=== PATIENT | female | born 1945 | race Caucasian/White ===

== ENCOUNTER 2016-11-25 18:49 | Emergency (ER) | payer OTHER ==
[~2016-11-25] VITALS: Ht 166.4 cm; Wt 89.7 kg
[~2016-11-25 18:49] MED LIST: ACET-1256 PO; CALC600T57 PO; LSX40 PO; MULT-506 PO; POTA10TA32 PO; TRC48 PO; VTMD1000 PO; WARF-246 PO
[2016-11-25 18:52] VITALS: TEMP 36.6; Ht 166.4 cm; Wt 89.7 kg
--- NOTE | 2016-11-25 19:49 | EMERGENCY ROOM VISIT NOTE ---
History Report prepared by Chandni: Karmen Purcell Under the Supervision of: Dr. Kirk Stephenson M.D. First contact with patient: 19:11 Chief Complaint: LEG PAIN,LEG INJURY Stated Complaint: LUMP ON RIGHT LEG History of Present Illness The patient is a 70 year old female who presents to the Emergency Room with complaints of a worsening lower right leg pain starting 3 days [employer]AD [employer]ING [employer]. The patient rates the intensity as a 4-5/10. The patient states that she noticed a lump on her right leg luevano that appeared to develop 3 days ago. She states that since the lump appeared it has gotten larger in size. The patient denies any injury to the site. The patient denies any calf pain, chest pain, fever, sob, weakness , or tingling. The patient states that she currently takes Warfarin for a mechanical valve. 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 Patient denies any tingling, calf pain. Review of Systems See HPI for pertinent positives & negatives. A total of 10 systems reviewed and were otherwise negative. Past Medical & Surgical Medical Problems: (1) HTN (hypertension) (2) Pacemaker Surgical Problems: (1) H/O: (2) History of appendectomy (3) Hx of cholecystectomy Old medical records were reviewed. Nurse's notes were reviewed and I agree with. Family History Cancer Diabetes mellitus Heart disease Hypertension Seizures Social History Smoking Status: Never Smoker Marital Status: Housing Status: lives with family Occupation Status: retired Current/Historical Medications Scheduled Calcium W/ Vitamin D (Calcium/Vitamin D), 1 TAB PO BID Cholecalciferol (Vitamin D3), 1,000 INTER.UNIT PO DAILY Fenofibrate (Fenofibrate), 48 MG PO DAILY Furosemide (Furosemide), 20 MG PO DAILY Multivitamin (Multivitamin), 1 TAB PO DAILY Potassium Chloride Microencaps (Potassium Chloride Er), 20 MEQ PO DAILY Warfarin Sodium (Warfarin Sodium), 5 MG PO [id number] Warfarin Sodium (Warfarin Sodium), 10 MG PO WEDNESDAY Scheduled PRN Acetaminophen (Tylenol), 1,000 MG PO TID PRN for Pain Allergies Coded Allergies: Simvastatin (Verified Allergy, Mild, SEVERE MUSCLE PAIN, 11/25/16) ALL STATIN DRUGS Physical Exam Vital Signs Date Time Temp Pulse Resp B/P Pulse Ox O2 Delivery O2 Flow Rate FiO2 11/25/16 21:48 62 18 129/80 99 Room Air 11/25/16 20:49 63 18 133/58 97 Room Air 11/25/16 18:52 36.6 79 18 151/66 99 Room Air Physical Exam General: Well developed well nourished in no acute distress, breathing comfortably on room air. Normal speech HEENT: Normal cephalic atraumatic. Pupils are equal round and reactive to light. Extraocular movements are intact. Oropharynx is pink with moist mucous membranes. No swelling of the mouth lips or tongue. Neck: Supple with a midline trachea. No meningeal signs or stiffness, no JVD or bruits. No Stridor. Chest: Clear to auscultation bilaterally. No wheezes or rhonchi. No increased work of breathing. Heart: regular rate and rhythm. Abdomen: Soft nontender, nondistended without rebound guarding or rigidity. Extremities: No cyanosis clubbing or edema. No calf tenderness or assymetry. Right lower extremity, hard indurated area right medial calf, no redness 2+ pulses Spine/Back. Non tender to palpation. No CVA tenderness Skin: Good turgor without rashes. Neurologic exam: Cranial nerves two through 12 are intact. Motor and sensation are intact and symmetrical throughout. Medical Decision & Procedures ER Provider Diagnostic Interpretation: X-ray results as stated below per interpretation by me and the radiologist: RIGHT TIBIA/FIBULA 2 VIEWS ROUTINE CLINICAL HISTORY: eval for mass Right mass COMPARISON: None. DISCUSSION: The bones and joint spaces appear intact. There is no evidence of fracture, dislocation or bony disease. There is no evidence for soft tissue swelling. IMPRESSION: Negative study. Electronically signed by: Luis Felipe Lazar M.D. 11/25/2016 8:16 PM Dictated Date/Time: 11/25/2016 8:15 PM US results as stated below per my review and radiologist interpretation: Venous Doppler right leg RIGHT VENOUS DOPP LOWER EXT UNILAT CLINICAL HISTORY: eval for DVT Right pain. Edema. TECHNIQUE: Venous Doppler COMPARISON STUDY: 04/02/2016 FINDINGS: Normal venous Doppler. No evidence of deep venous thrombosis. Heterogeneous nodule within the subcutaneous tissues in medial calf. This measures approximately 4.5 x 2.0 cm. Potentially relates to a hematoma as it was not identified on the prior study. IMPRESSION: 1. Study is negative for deep venous thrombosis. 2. Nodule within the subcutaneous tissues medial calf. This statistically is most consistent with that of a hematoma as it was not seen on the prior study. 3. This persists, biopsy would be indicated. Electronically signed by: Luis Felipe Lazar M.D. 11/25/2016 8:33 PM Dictated Date/Time: 11/25/2016 8:32 PM Laboratory Results 11/25/16 19:55 Red Blood Count 4.25, Mean Corpuscular Volume 82.6, Mean Corpuscular Hemoglobin 27.8, Mean Corpuscular Hemoglobin Concent 33.6, Mean Platelet Volume 10.0, Neutrophils (%) (Auto) 50.7, Lymphocytes (%) (Auto) 34.9, Monocytes (%) (Auto) 8.8, Eosinophils (%) (Auto) 4.1, Basophils (%) (Auto) 1.2, Neutrophils # (Auto) 1.73, Lymphocytes # (Auto) 1.19, Monocytes # (Auto) 0.30, Eosinophils # (Auto) 0.14, Basophils # (Auto) 0.04 11/25/16 19:55 Test 11/25/16 19:55 White Blood Count 3.41 K/uL (4.8-10.8) Red Blood Count 4.25 M/uL (4.2-5.4) Hemoglobin 11.8 g/dL (12.0-16.0) Hematocrit 35.1 % (37-47) Mean Corpuscular Volume 82.6 fL (80-100) Mean Corpuscular Hemoglobin 27.8 pg (25-34) Mean Corpuscular Hemoglobin Concent 33.6 g/dl (32-36) Platelet Count 208 K/uL (130-400) Mean Platelet Volume 10.0 fL (7.4-10.4) Neutrophils (%) (Auto) 50.7 % Lymphocytes (%) (Auto) 34.9 % Monocytes (%) (Auto) 8.8 % Eosinophils (%) (Auto) 4.1 % Basophils (%) (Auto) 1.2 % Neutrophils # (Auto) 1.73 K/uL (1.4-6.5) Lymphocytes # (Auto) 1.19 K/uL (1.2-3.4) Monocytes # (Auto) 0.30 K/uL (0.11-0.59) Eosinophils # (Auto) 0.14 K/uL (0-0.5) Basophils # (Auto) 0.04 K/uL (0-0.2) RDW Standard Deviation 43.2 fL (36.4-46.3) RDW Coefficient of Variation 14.2 % (11.5-14.5) Immature Granulocyte % (Auto) 0.3 % Immature Granulocyte # (Auto) 0.01 K/uL (0.00-0.02) Prothrombin Time 56.2 SECONDS (9.0-12.0) Prothromb Time International Ratio 4.9 (0.9-1.1) Activated Partial Thromboplast Time 44.1 SECONDS (21.0-31.0) Partial Thromboplastin Ratio 1.7 Anion Gap 6.0 mmol/L (3-11) Est Creatinine Clear Calc Drug Dose 84.7 ml/min Estimated GFR () 101.4 Estimated GFR (Non- 87.5 BUN/Creatinine Ratio 28.8 (10-20) Calcium Level 8.9 mg/dl (8.5-10.1) Laboratory studies as stated above per my review. ED Course 0:At this time the patient was evaluated by the medical student. The student s findings were discussed with me. We discussed a possible treatment plan and differential diagnoses for the patient. 2014: Past medical records reviewed. The patient was evaluated in room B11B, and a complete history and physical examination were performed. 2107: I reevaluated the patient and she was resting comfortably. 2144: Upon reevaluation, the patient is hemodynamically stable. I discussed the results and treatment plan with her. She verbalized agreement of the treatment plan. The patient was discharged home. Medical Decision Differentials include, but are not limited to; DVT, fracture, malignancy, hematoma and electrolyte or metabolic abnormality. This patient comes in as described above. She has a painful lump on the right medial calf. It is not red or warm or swollen. She has no evidence suggest infection. The knee and ankle are unremarkable. She is neurologically and neurovascularly intact. She has no evidence of compartment syndrome. She has normal distal pulses and good capillary refill. X-ray and ultrasound as well as blood work was obtained. There is no evidence to suggest any bony abnormality or fracture. Ultrasound shows what appears to be a hematoma. Her INR was 4.9 and she says she is supposed to be between 3 and 4. She is slightly supratherapeutic. I will have her hold her dose of Coumadin in the morning and follow-up with her doctor tomorrow. She may need to hold it further but I told her not to hold more than one dose without checking with her doctor. She has no white count or fever to suggest infection. She's had no electrolyte or metabolic abnormalities. I think she basically has a hematoma and is on Coumadin. She is to return if: increasing pain or swelling redness or warmth numbness or weakness, any pain or problems in her foot, any new problems or concerns. Have close follow-up with her doctor tomorrow for recheck and recheck of her INR Coumadin was in 1-2 days. Family was happy with plan and was discharged to home. Impression Primary Impression: Hematoma Additional Impression: Supratherapeutic INR Scribe Attestation The scribe's documentation has been prepared under my direction and personally reviewed by me in its entirety. I confirm that the note above accurately reflects all work, treatment, procedures, and medical decision making performed by me. Departure Information Dispostion Home / Self-Care Referrals Wallace Mejia D.O. (PCP) Forms HOME CARE DOCUMENTATION FORM, IMPORTANT VISIT INFORMATION Patient Instructions My [facility] Additional Instructions Rest. Ice intermittently Hold Coumadin tomorrow morning only. Call your doctor tomorrow for further instructions. You will need close follow-up either tomorrow on Wednesday and may need to hold it further but do not do this unless you talk to your doctor. Return if: Increasing pain or swelling, numbness or weakness, fever or chills, redness or warmth, any new problems or concerns. Problem Qualifiers
[2016-11-25 20:06] LABS: BASO % 1.2 %; BASO ABS # 0.04 K/uL (0-0.2); COMPLETE YES; EOS % 4.1 %; HEMATOCRIT 35.1 % (37-47); IG% 0.3 %; LYMPH % 34.9 %; LYMPH ABS # 1.19 K/uL (1.2-3.4); MEAN CELL VOLUME 82.6 fL (80-100); MEAN CORPUSCULAR HEMOGLOBIN 27.8 pg (25-34); MEAN CORPUSCULAR HGB CONC 33.6 g/dl (32-36); MONO % 8.8 %; NEUT % 50.7 %; PLATELET COUNT 208 K/uL (130-400); RED BLOOD COUNT 4.25 M/uL (4.2-5.4); WHITE BLOOD COUNT 3.41 K/uL (4.8-10.8)
[2016-11-25] MEDS ORDERED: CALC600T24 PO (20:18)
--- NOTE | 2016-11-25 20:18 | DIAGNOSTIC IMAGING REPORT ---
RIGHT TIBIA/FIBULA 2 VIEWS ROUTINE CLINICAL HISTORY: eval for mass Right mass COMPARISON: None. DISCUSSION: The bones and joint spaces appear intact. There is no evidence of fracture, dislocation or bony disease. There is no evidence for soft tissue swelling. IMPRESSION: Negative study. Electronically signed by: Luis Felipe Lazar M.D. 11/25/2016 8:16 PM Dictated Date/Time: 11/25/2016 8:15 PM
[2016-11-25 20:24] LABS: PARTIAL THROMBOPLASTIN RATIO 1.7; PROTHROMBIN TIME (PATIENT) 56.2 SECONDS (9.0-12.0)
[2016-11-25 20:30] LABS: BUN/CREATININE RATIO 28.8 (10-20); CALCIUM 8.9 mg/dl (8.5-10.1); CREATININE 0.71 mg/dl (0.60-1.20)
--- NOTE | 2016-11-25 20:36 | DIAGNOSTIC IMAGING REPORT ---
Venous Doppler right leg RIGHT VENOUS DOPP LOWER EXT UNILAT CLINICAL HISTORY: eval for DVT Right pain. Edema. TECHNIQUE: Venous Doppler COMPARISON STUDY: 04/02/2016 FINDINGS: Normal venous Doppler. No evidence of deep venous thrombosis. Heterogeneous nodule within the subcutaneous tissues in medial calf. This measures approximately 4.5 x 2.0 cm. Potentially relates to a hematoma as it was not identified on the prior study. IMPRESSION: 1. Study is negative for deep venous thrombosis. 2. Nodule within the subcutaneous tissues medial calf. This statistically is most consistent with that of a hematoma as it was not seen on the prior study. 3. This persists, biopsy would be indicated. Electronically signed by: Luis Felipe Lazar M.D. 11/25/2016 8:33 PM Dictated Date/Time: 11/25/2016 8:32 PM
[2016-11-25 20:37] LABS: INR 4.9 (0.9-1.1)
[2016-11-25 21:48] VITALS: BP 129/80; PULSE 62; O2SAT 99
== END 2016-11-25 21:49 | disposition home or self-care (01) ==
LOC: C.EDB 18:50
DX: S80.11XA Contusion of right lower leg, initial encounter (principal); X58.XXXA Exposure to other specified factors, initial encounter; R79.1 Abnormal coagulation profile; I10 Essential (primary) hypertension; Z95.0 Presence of cardiac pacemaker; Z80.9 Family history of malignant neoplasm, unspecified; Z83.3 Family history of diabetes mellitus; Z82.49 Family history of ischemic heart disease and other diseases of the circulatory system; Z79.01 Long term (current) use of anticoagulants; Z79.899 Other long term (current) drug therapy

== ENCOUNTER 2021-05-12 20:52 | Inpatient (IN) ==
[2021-05-12 21:26] LABS: Basophils # (auto) 0.03 K/uL (0-0.2); Basophils % (auto) 0.7 %; Eosinophils % (auto) 4.9 %; Hematocrit (blood only) 38.2 % (37-47); Hemoglobin 12.2 g/dL (12.0-16.0); Immature Granulocytes # (auto) 0.01 K/uL (0.00-0.02); Immature Granulocytes % (auto) 0.2 %; Lymphocytes # (auto) 1.52 K/uL (1.2-3.4); Lymphocytes % (auto) 36.9 %; Mean Corpuscular Hemoglobin 27.5 pg (25-34); Mean Corpuscular Hgb Conc 31.9 g/dL (32-36); Mean Corpuscular Volume 86.2 fL (80-100); Monocytes # (auto) 0.45 K/uL (0.11-0.59); Monocytes % (auto) 10.9 %; Neutrophils # (auto) 1.91 K/uL (1.4-6.5); Neutrophils % (auto) 46.4 %; Platelet Count 197 K/uL (130-400); Red Blood Count 4.43 M/uL (4.2-5.4); White Blood Count 4.12 K/uL (4.8-10.8)
[2021-05-12 21:38] LABS: INR 3.2 (0.9-1.1); Partial Thromboplastin Ratio 1.5; Partial Thromboplastin Time 40.2 Seconds (21.0-31.0); Prothrombin Time 29.7 Seconds (9.0-12.0)
[2021-05-12 21:43] LABS: Albumin Level 3.5 gm/dl (3.4-5.0); BUN Creatinine Ratio 20.3 (10-20); Calcium 9.1 mg/dl (8.5-10.1); Creatinine Clr Calc Pharmacy 55.3 ml/min; Est GFR (African American) 61.7 ml/min; Est GFR (Non-African American) 53.3 ml/min; Potassium 3.7 mmol/L (3.5-5.1)
[2021-05-12 22:10] LABS: Albumin Globulin Ratio 0.9 (0.9-2); Bilirubin,Total 0.4 mg/dl (0.2-1); Total Protein 7.5 gm/dl (6.4-8.2); Troponin I 0.242 ng/ml (0-0.045)
--- NOTE | 2021-05-12 23:18 | Emergency Department Note ---
Impression & Plan Non-ST elevation ND (NSTEMI), Chest pain ED Provider Note Provider: Néstor Rubalcava MD DATE OF SERVICE: 05/12/2021 CHIEF COMPLAINT: Chest pressure HISTORY OF PRESENT ILLNESS: Patient is a 75-year-old female history of gastric bypass mask, mechanical valve on Coumadin, cholecystectomy, appendectomy, and aortic aneurysm presenting here today with her son with the onset around 830 am this morning of some pain and pressure in her left chest. She denies any falls or trauma. Patient states he was out walking her dog when this began. Rested and symptoms persisted throughout the day. Called her family and was eventually persuaded to come here for evaluation. States feels just a little bit short of breath. States has been taking her medicines but recently moving back to the area and has not established with that doctor here yet. Patient would last several days has been moving boxes and her son thinks she may have overdone it with this. She also reports that she complained of a little bit of dizziness earlier. Patient denies this now and states maybe 3 out of 10 left-sided chest pressure. Denies significant radiation of the pain. Pain does not really change with movement of her arms. Pain may be a little bit better than when it started earlier today. Denies abdominal symptoms. REVIEW OF SYSTEMS: A total of 10 review of systems was obtained and negative except as stated above in the HPI. PAST MEDICAL HISTORY: As noted above MEDICATIONS: Reviewed home includes Coumadin and ASA SOCIAL HISTORY: Moving into the area to live at the [facility] apartments PHYSICAL EXAM: GENERAL: alert and oriented in no acute distress on stretcher Head: normocephalic and atraumatic EYES: No injection, discharge or icterus. NECK: Trachea midline. ENT: Mucous membranes pink and moist. LUNGS: Airway patent. No retractions. Breath sounds clear HEART: Regular rate and rhythm. With minimal left chest wall tenderness over the area of prior pacemaker site without significant erythema or crepitus. ABDOMEN: Soft and non-tender, without guarding or rebound. SKIN: Acyanotic, warm, dry, without rashes EXTREMITIES: Without tenderness with mild bilateral pedal edema. NEUROLOGICAL: No focal deficits. No aphasia. No facial droop or slurred speech. EK bpm AV paced rhythm without PVC. Widened QRS complex. QTc 497. No acute ST segment elevation noted accounting for the paced rhythm. Compared to previous from October 082018 similar morphologies. CONTINUOUS CARDIAC MONITORING: was ordered and showed a heart rate of 60s to 70s bpm in paced rhythm 1 view chest x-ray per my interpretation: No evidence of pneumothorax or pleural effusion. Pacemaker in place. Patient's laboratory studies and imaging reviewed. Differential includes Cardiac ischemia, aortic dissection, pulmonary embolism, pneumothorax, pneumonia, pericarditis, myocarditis, esophageal rupture, GERD, cholecystitis, pancreatitis, musculoskeletal, as well as other pathologies. IMPRESSION/MEDICAL DECISION MAKING: Patient walking with the onset of some chest pressure left chest. Minimal shortness of breath or dizziness. No trauma or syncope. Patient therapeutic on Coumadin lower suspicion for PE. No focal neurological deficits concerning for stroke at this time. Doubt acute intracranial bleed given her lack of neuro symptoms or headache. Blood work with out significant anemia and borderline leukopenia. No evidence of significant renal dysfunction. Troponin is noted to be elevated 0.242 without STEMI findings on EKG. With her complaint of chest discomfort concerning for NSTEMI. Patient did take aspirin today and she is already anticoagulated. Minimal discomfort at this time. Discussed with her the need for further observation here and cardiac consultation in the morning for further testing as well as trending of her blood work. She was in agreement. Will discuss with the hospitalist for further care here at the hospital. DIAGNOSIS: NSTEMI, Chest pain DISPOSITION: Hospitalist will evaluate Patient was agreeable with this plan. Past Med/Surg History Medical History (Updated 05/12/21 @ 23:30 by Néstor Rubalcava M.D.) Aortic aneurysm Compression fracture HTN (hypertension) Pacemaker Surgical History (Updated 11/22/18 @ 09:41 by Nuha Pineda RN) H/O gastric bypass H/O hernia repair H/O: History of appendectomy Hx of cholecystectomy Mechanical heart valve present Family History (Updated 10/21/18 @ 10:59 by Ella Olmos) Other Family history non-contributory Social History (Updated 10/19/18 @ 13:20 by Krupa Marks) Smoking Status: Never smoker Preferred Language: Ghanaian Communication Ability: Effective Visual Impairment: No Limitations Hearing Ability: Normal marital status: current occupational status: retired Feels Safe at Home: Yes Allergies Allergies Allergy/AdvReac Type Severity Reaction Status Date / Time ALL STATIN DRUGS AdvReac BILATERAL Uncoded 05/12/21 23:04 LEG WEAKNESS Home Meds Home Medications Medication Instructions Recorded Confirmed fenofibrate nanocrystallized 48 mg 48 mg PO QPM 10/08/18 05/12/21 tablet furosemide 20 mg tablet 20 mg PO DAILY 10/08/18 05/12/21 multivitamin (Multiple Vitamins) 1 tab PO DAILY 10/08/18 05/12/21 acetaminophen 500 mg tablet 1,000 mg PO Q6H PRN 05/12/21 05/12/21 gabapentin 300 mg capsule 300 mg PO TID 05/12/21 05/12/21 metoprolol tartrate 25 mg tablet 25 mg PO BID 05/12/21 05/12/21 potassium chloride 20 mEq 20 meq PO DAILY 05/12/21 05/12/21 tablet,extended release warfarin 1 mg tablet 4 mg PO DAILY 05/12/21 05/12/21 Results & Data (ED) Vital Signs Vital Signs - 24 hr 05/12/21 20:56 05/12/21 22:38 05/12/21 23:04 Temperature 36.4 C L Temperature Source Temporal Artery Scan Pulse Rate 90 Pulse Rate [Apical] 65 Respiratory Rate 20 16 Respiratory Effort / Characteristics Non-Labored Spontaneous Respiratory Depth Normal Blood Pressure 149/89 H Blood Pressure [Right Arm] 160/79 H Blood Pressure Mean 109 Blood Pressure Mean [Right Arm] 106 Pulse Oximetry 99 97 99 Oxygen Delivery Method Room Air Room Air Room Air Sepsis New/Unexplained Change in Mental Status N/A Sepsis Action Taken by Nursing No Action Required Laboratory Data Result diagrams: 05/12/21 21:00 05/12/21 21:00 Lab Results 05/12/21 05/12/21 05/12/21 Range/Units 21:00 21:00 21:00 WBC 4.12 L (4.8-10.8) K/uL RBC 4.43 (4.2-5.4) M/uL Hgb 12.2 (12.0-16.0) g/dL Hct 38.2 (37-47) % MCV 86.2 (80-100) fL MCH 27.5 (25-34) pg MCHC 31.9 L (32-36) g/dL RDW Std Deviation 44.0 (36.4-46.3) fL RDW Coeff of Derek 14.0 (11.5-14.5) % Plt Count 197 (130-400) K/uL MPV 10.0 (7.4-10.4) fL Immature Gran % (Auto) 0.2 % Neut % (Auto) 46.4 % Lymph % (Auto) 36.9 % [place] % (Auto) 10.9 % Eos % (Auto) 4.9 % Baso % (Auto) 0.7 % Neut # (Auto) 1.91 (1.4-6.5) K/uL Lymph # (Auto) 1.52 (1.2-3.4) K/uL [place] # (Auto) 0.45 (0.11-0.59) K/uL Eos # (Auto) 0.20 (0-0.5) K/uL Baso # (Auto) 0.03 (0-0.2) K/uL Immature Gran # (Auto) 0.01 (0.00-0.02) K/uL PT 29.7 H (9.0-12.0) Seconds INR 3.2 H (0.9-1.1) APTT 40.2 H (21.0-31.0) Seconds PTT Ratio 1.5 Sodium 140 (136-145) mmol/L Potassium 3.7 (3.5-5.1) mmol/L Chloride 108 H (98-107) mmol/L Carbon Dioxide 25 (21-32) mmol/L Anion Gap 7.0 (3-11) BUN 21 H (7-18) mg/dl Creatinine 1.04 (0.6-1.2) mg/dl Est Cr Clr Drug Dosing 55.3 ml/min Est GFR ( Amer) 61.7 ml/min Est GFR (Non-Af Amer) 53.3 ml/min BUN/Creatinine Ratio 20.3 H (10-20) Glucose 90 (70-99) mg/dl Calcium 9.1 (8.5-10.1) mg/dl Total Bilirubin 0.4 (0.2-1) mg/dl AST 42 H (15-37) U/L ALT 31 (12-78) U/L Alkaline Phosphatase 53 (45-117) U/L Troponin I 0.242 H* (0-0.045) ng/ml Total Protein 7.5 (6.4-8.2) gm/dl Albumin 3.5 (3.4-5.0) gm/dl Globulin 4.0 (2.5-4.0) gm/dl Albumin/Globulin Ratio 0.9 (0.9-2) COVID-19 Eval Order 05/12/21 Range/Units 22:50 WBC (4.8-10.8) K/uL RBC (4.2-5.4) M/uL Hgb (12.0-16.0) g/dL Hct (37-47) % MCV (80-100) fL MCH (25-34) pg MCHC (32-36) g/dL RDW Std Deviation (36.4-46.3) fL RDW Coeff of Derek (11.5-14.5) % Plt Count (130-400) K/uL MPV (7.4-10.4) fL Immature Gran % (Auto) % Neut % (Auto) % Lymph % (Auto) % [place] % (Auto) % Eos % (Auto) % Baso % (Auto) % Neut # (Auto) (1.4-6.5) K/uL Lymph # (Auto) (1.2-3.4) K/uL [place] # (Auto) (0.11-0.59) K/uL Eos # (Auto) (0-0.5) K/uL Baso # (Auto) (0-0.2) K/uL Immature Gran # (Auto) (0.00-0.02) K/uL PT (9.0-12.0) Seconds INR (0.9-1.1) APTT (21.0-31.0) Seconds PTT Ratio Sodium (136-145) mmol/L Potassium (3.5-5.1) mmol/L Chloride (98-107) mmol/L Carbon Dioxide (21-32) mmol/L Anion Gap (3-11) BUN (7-18) mg/dl Creatinine (0.6-1.2) mg/dl Est Cr Clr Drug Dosing ml/min Est GFR ( Amer) ml/min Est GFR (Non-Af Amer) ml/min BUN/Creatinine Ratio (10-20) Glucose (70-99) mg/dl Calcium (8.5-10.1) mg/dl Total Bilirubin (0.2-1) mg/dl AST (15-37) U/L ALT (12-78) U/L Alkaline Phosphatase (45-117) U/L Troponin I (0-0.045) ng/ml Total Protein (6.4-8.2) gm/dl Albumin (3.4-5.0) gm/dl Globulin (2.5-4.0) gm/dl Albumin/Globulin Ratio (0.9-2) COVID-19 Eval Order Covid19 at [facility] Discharge Plan Visit Data Chief Complaint: Cardiac Assessment Stated Complaint: PRESSURE WHERE PACEMAKER IS ED Provider: Néstor Rubalcava Discharge Problem: Non-ST elevation ND (NSTEMI), Chest pain Patient Disposition: Being Evaluated by Hospitalist Forms Stand Alone Forms: [facility] Prescriptions Prescriptions: No Action fenofibrate nanocrystallized 48 mg Tablet 48 mg PO QPM RF: 0 multivitamin [Multiple Vitamins] Tablet 1 tab PO DAILY RF: 0 furosemide 20 mg Tablet 20 mg PO DAILY RF: 0 acetaminophen [Tylenol Ex Str Rapid Release] 500 mg Tablet 1,000 mg PO Q6H PRN (Reason: Pain) RF: 0 warfarin 1 mg tablet 4 mg PO DAILY RF: 0 metoprolol tartrate 25 mg tablet 25 mg PO BID RF: 0 potassium chloride 20 mEq tablet extended release 20 meq PO DAILY RF: 0 gabapentin 300 mg capsule 300 mg PO TID RF: 0 Referrals Referrals: Wallace Mejia DO [Primary Care Provider] -
[2021-05-13 00:46] LABS: Troponin I 0.295 ng/ml (0-0.045)
--- NOTE | 2021-05-13 01:00 | History & Physical Report ---
Date of Service May 13, 2021 Assessment & Plan (1) Atypical chest pain: Plan: Likely musculoskeletal given reproducibility and recent exertion preparing for relocation Rule out ACS, hx CAD status post CABG Troponin elevation possibly from elevated BP SSS status post PPM on Coumadin, paced rhythm, INR therapeutic hx aortic stenosis status post bioprosthetic AVR hyperlipidemia/statin intolerance history gastric bypass OBS PCU Analgesia Follow troponin Continue home BP meds, initiate lisinopril if still uncontrolled TTE, Cardiology consult Re: Chest pain, troponin elevation N.p.o., hold Coumadin until patient seen by Cardiology in a.m. DVT prophylaxis. Coumadin INR goal between 2 and 3 if no procedure from cardiac standpoint Full code Patient son requesting updates from providers. Mr. Hanna Facer, contact #[phone]. Text document was generated using [employer] voice recognition software. It may contain grammatical or spelling errors. Kindly contact undersigned for clarification of any documentation item in question. History of Present Illness Chief Complaint: Chest pain Primary Care Provider: None Patient would like to be set up with former PCP (Dr. Wallace Mejia) upon discharge. History obtained from patient and records. Medical history significant for CAD status post CABG, SSS status post PPM on Coumadin, aortic stenosis status post bioprosthetic AVR, history of cardiac arrest as per records, hypertension, hyperlipidemia, statin intolerance, history gastric bypass. Patient underwent redo [place]oprosthetic [place] [facility] [place] after she was found to have mechanical AVR stenosis and mid LAD stenosis on cardiac cath at [facility]. Subsequent rehab stay followed by discharge to a home close to [place], [place] where patient resided with her daughter. Patient in the process of relocating back to [facility] this month. She was moving boxes over the weekend. This morning patient noted left-sided chest pressure with some shortness of breath while walking her dog. No cough. Chest pain somewhat different from episodes in the past. Some dizziness as well. Chest pain somewhat hurt more when moving her left arm. Patient currently comfortable at the ER. Medical History as above Surgical History : Breast lesion excision, gastric bypass, PPM, appendectomy, cholecystectomy, CABG, AVR Family History : Parkinson's disease, heart disease Personal/Social history : Non-smoker, no EtOH intake, retired high school assistant principal Allergies Allergy/AdvReac Type Severity Reaction Status Date / Time ALL STATIN DRUGS AdvReac BILATERAL Uncoded 05/12/21 23:04 LEG WEAKNESS Home Medications Medication Instructions Recorded Confirmed Type fenofibrate nanocrystallized 48 mg 48 mg PO QPM 10/08/18 05/12/21 History tablet furosemide 20 mg tablet 20 mg PO DAILY 10/08/18 05/12/21 History multivitamin (Multiple Vitamins) 1 tab PO DAILY 10/08/18 05/12/21 History acetaminophen 500 mg tablet 1,000 mg PO Q6H PRN 05/12/21 05/12/21 History gabapentin 300 mg capsule 300 mg PO TID 05/12/21 05/12/21 History metoprolol tartrate 25 mg tablet 25 mg PO BID 05/12/21 05/12/21 History potassium chloride 20 mEq 20 meq PO DAILY 05/12/21 05/12/21 History tablet,extended release warfarin 1 mg tablet 4 mg PO DAILY 05/12/21 05/12/21 History Past Med/Surg History Medical History Aortic aneurysm Compression fracture HTN (hypertension) Pacemaker Surgical History H/O gastric bypass H/O hernia repair H/O: History of appendectomy Hx of cholecystectomy Mechanical heart valve present Family History Other Family history non-contributory Social History Smoking Status: Never smoker Second Hand Exposure: Yes (at apartment complex); Do You Dip or Chew Tobacco: No; Tobacco Cessation Education Requested by Patient: No Hx Alcohol Use: No Hx Substance Use: No Preferred Language: Greek Communication Ability: Effective Visual Impairment: No Limitations Hearing Ability: Normal Chain Dyer Required: No Beliefs That Will Affect Care: None marital status: Current Living Situation: Alone current occupational status: retired Other Information That Helps Us Care for You: No Feels Safe at Home: Yes Safety Concerns: Feels Safe At This Time Assistive Devices: Glasses Review of Systems Review of Systems: As per HPI, all 10 systems reviewed, all other ROS negative Physical Exam Physical Exam: GENERAL: Comfortable, no respiratory distress, obese, pleasant SKIN: Normal color, warm, HEENT: [place] palpebral conjunctivae, no ptosis, moist buccal mucosa NECK : Supple, short neck no tenderness CHEST : CTA, left side chest wall tenderness HEART : RRR, systolic murmur ABDOMEN: Some distention, nontender EXTREMITIES : Minimal LE swelling, no LE tenderness, no other conspicuous deformities noted NEUROLOGIC : Coherent, no facial asymmetry, no other gross focality Results & Data Results & Data ([facility]) Vital Signs (Past 12 Hours) Vital Signs Temp Pulse Pulse Resp BP BP Pulse Ox 05/13/21 00:30 60 13 148/63 H 96 05/13/21 00:00 60 14 157/61 H 97 05/12/21 23:30 60 15 136/62 97 05/12/21 23:06 61 23 159/76 H 98 05/12/21 23:04 99 05/12/21 22:39 62 12 160/79 H 96 05/12/21 22:38 65 16 160/79 H 97 05/12/21 21:00 97 05/12/21 20:56 36.4 C L 90 20 149/89 H 99 Laboratory Results Laboratory Results WBC 4.12 K/uL (4.8-10.8) L 05/12/21 21:00 RBC 4.43 M/uL (4.2-5.4) 05/12/21 21:00 Hgb 12.2 g/dL (12.0-16.0) 05/12/21 21:00 Hct 38.2 % (37-47) 05/12/21 21:00 MCV 86.2 fL (80-100) 05/12/21 21:00 MCH 27.5 pg (25-34) 05/12/21 21:00 MCHC 31.9 g/dL (32-36) L 05/12/21 21:00 RDW Std Deviation 44.0 fL (36.4-46.3) 05/12/21 21:00 RDW Coeff of Derek 14.0 % (11.5-14.5) 05/12/21 21:00 Plt Count 197 K/uL (130-400) 05/12/21 21:00 MPV 10.0 fL (7.4-10.4) 05/12/21 21:00 Immature Gran % (Auto) 0.2 % 05/12/21 21:00 Neut % (Auto) 46.4 % 05/12/21 21:00 Lymph % (Auto) 36.9 % 05/12/21 21:00 [place] % (Auto) 10.9 % 05/12/21 21:00 Eos % (Auto) 4.9 % 05/12/21 21:00 Baso % (Auto) 0.7 % 05/12/21 21:00 Neut # (Auto) 1.91 K/uL (1.4-6.5) 05/12/21 21:00 Lymph # (Auto) 1.52 K/uL (1.2-3.4) 05/12/21 21:00 [place] # (Auto) 0.45 K/uL (0.11-0.59) 05/12/21 21:00 Eos # (Auto) 0.20 K/uL (0-0.5) 05/12/21 21:00 Baso # (Auto) 0.03 K/uL (0-0.2) 05/12/21 21:00 Immature Gran # (Auto) 0.01 K/uL (0.00-0.02) 05/12/21 21:00 PT 29.7 Seconds (9.0-12.0) H 05/12/21 21:00 INR 3.2 (0.9-1.1) H 05/12/21 21:00 APTT 40.2 Seconds (21.0-31.0) H 05/12/21 21:00 PTT Ratio 1.5 05/12/21 21:00 Sodium 140 mmol/L (136-145) 05/12/21 21:00 Potassium 3.7 mmol/L (3.5-5.1) 05/12/21 21:00 Chloride 108 mmol/L (98-107) H 05/12/21 21:00 Carbon Dioxide 25 mmol/L (21-32) 05/12/21 21:00 Anion Gap 7.0 (3-11) 05/12/21 21:00 BUN 21 mg/dl (7-18) H 05/12/21 21:00 Creatinine 1.04 mg/dl (0.6-1.2) 05/12/21 21:00 Est Cr Clr Drug Dosing 55.3 ml/min 05/12/21 21:00 Est GFR ( Amer) 61.7 ml/min 05/12/21 21:00 Est GFR (Non-Af Amer) 53.3 ml/min 05/12/21 21:00 BUN/Creatinine Ratio 20.3 (10-20) H 05/12/21 21:00 Glucose 90 mg/dl (70-99) 05/12/21 21:00 Calcium 9.1 mg/dl (8.5-10.1) 05/12/21 21:00 Total Bilirubin 0.4 mg/dl (0.2-1) 05/12/21 21:00 AST 42 U/L (15-37) H 05/12/21 21:00 ALT 31 U/L (12-78) 05/12/21 21:00 Alkaline Phosphatase 53 U/L (45-117) 05/12/21 21:00 Troponin I 0.295 ng/ml (0-0.045) H* 05/12/21 23:55 NT-Pro-B Natriuret Pep 475 pg/ml (0-900) 05/12/21 23:55 Total Protein 7.5 gm/dl (6.4-8.2) 05/12/21 21:00 Albumin 3.5 gm/dl (3.4-5.0) 05/12/21 21:00 Globulin 4.0 gm/dl (2.5-4.0) 05/12/21 21:00 Albumin/Globulin Ratio 0.9 (0.9-2) 05/12/21 21:00 COVID-19 Eval Order Covid19 at [facility] 05/12/21 22:50 SARS-CoV-2 (PCR) NEGATIVE (Negative) 05/12/21 22:50 Diagnostic Findings Chest x-ray as per my interpretation, pacemaker, no congestion EKG as per my interpretation : Rate 70, paced rhythm
[2021-05-13 03:50] LABS: Magnesium 2.2 mg/dl (1.8-2.4)
[2021-05-13] MEDS ORDERED: METOPROLOL TARTRATE 25 MG TAB PO STA (04:12)
[2021-05-13] MEDS ORDERED: POTASSIUM CHLORIDE 20 MEQ in LACTATED RINGER'S 1,000 ML IV SCH (04:30)
[2021-05-13] MEDS ORDERED: NITROGLYCERIN SL 0.4 MG/TAB TAB SL PRN (05:26)
[2021-05-13] MEDS ORDERED: traMADol HCL 50 MG TABLET PO PRN (05:26)
[2021-05-13] MEDS ORDERED: MoRPHine SULFATE 4 MG/ML 1 ML CARP\\VIAL IV PRN (05:26)
[2021-05-13] MEDS ORDERED: PROMETHAZINE HCL 12.5 MG in SODIUM CHLORIDE 0.9% 50 ML IV PRN (05:26)
[2021-05-13] MEDS ORDERED: LORazepam 0.25 MG/0.5 ML VIAL IV PRN (05:26)
[2021-05-13] MEDS ORDERED: PNEUMOCOCCAL POLYSACCHARIDES 25 MCG/0.5 ML VIAL/SYR IM ONE (05:44)
[2021-05-13] MEDS ORDERED: INFLUENZA VACCINE HIGH DOSE PF 65+ 0.7 ML SYR IM ONE (05:44)
[2021-05-13 07:14] LABS: Basophils # (auto) 0.03 K/uL (0-0.2); Eosinophils # (auto) 0.16 K/uL (0-0.5); Eosinophils % (auto) 5.2 %; Hemoglobin 12.1 g/dL (12.0-16.0); Immature Granulocytes # (auto) 0.01 K/uL (0.00-0.02); Immature Granulocytes % (auto) 0.3 %; Lymphocytes # (auto) 1.06 K/uL (1.2-3.4); Lymphocytes % (auto) 34.3 %; Mean Corpuscular Hemoglobin 27.4 pg (25-34); Mean Corpuscular Volume 88.4 fL (80-100); Mean Platelet Volume 10.6 fL (7.4-10.4); Monocytes # (auto) 0.25 K/uL (0.11-0.59); Monocytes % (auto) 8.1 %; Neutrophils # (auto) 1.58 K/uL (1.4-6.5); Neutrophils % (auto) 51.1 %; Platelet Count 202 K/uL (130-400); RDW Coefficient of Variation 13.9 % (11.5-14.5); RDW Standard Deviation 45.3 fL (36.4-46.3); Red Blood Count 4.41 M/uL (4.2-5.4); White Blood Count 3.09 K/uL (4.8-10.8)
[2021-05-13] MEDS: lisinopril 2.5 MG TAB PO SCH (07:15)
[2021-05-13 07:39] LABS: BUN Creatinine Ratio 20.2 (10-20); Calcium 8.8 mg/dl (8.5-10.1); Creatinine Clr Calc Pharmacy 71.6 ml/min; Est GFR (African American) 84.8 ml/min; Est GFR (Non-African American) 73.1 ml/min; Potassium 4.2 mmol/L (3.5-5.1)
--- NOTE | 2021-05-13 07:43 | XRay Report ---
XR chest 1V portable INDICATION: MN ^Chest Pain . TECHNIQUE: Single frontal radiograph of the chest was obtained. Comparison: Comparison is made to chest one view 10/07/2018 FINDINGS: Interval stability of median sternotomy wires and dual-lead pacemaker. The cardiomediastinal silhouet te is normal. The lungs are clear. No evidence of pleural effusion or pneumothorax. IMPRESSION: No acute chest disease. ACT 112: Negative or not required by law. Electronically signed by: Mert Love M.D. 05/13/2021 7:42 AM
[2021-05-13 07:47] LABS: Troponin I 0.247 ng/ml (0-0.045)
[2021-05-13 07:49] LABS: INR 3.2 (0.9-1.1); Prothrombin Time 29.2 Seconds (9.0-12.0)
[2021-05-13] MEDS ORDERED: METOPROLOL TARTRATE 25 MG TAB PO SCH (09:00)
[2021-05-13] MEDS: MULTIVITAMIN TAB PO SCH (09:01)
[2021-05-13] MEDS: GABAPENTIN 300 MG CAP PO SCH ×3 (09:02→20:10)
--- NOTE | 2021-05-13 09:43 | Cardiology Consultation ---
Date of Consultation May 13, 2021 Assessment & Plan (1) Elevated troponin I level: (2) Chest pain: (3) S/P AVR (aortic valve replacement): (4) S/P CABG x 1: (5) Pacemaker: (6) Paroxysmal atrial fibrillation: Complex 74-year-old female presents with chest discomfort and mildly elev ated troponin. Preliminary review of bedside 2D transthoracic echocardiogram demonstrates preserved LV systolic function, abnormal septal wall motion consistent with pacemaker activation (postoperative state), and normal functioning bioprosthetic aortic valve. Patient is currently pain-free. Add aspirin 81 mg daily. Continue beta-saige, and RODOLFO inhibitor. Reports history of statin intolerance. Continue fenofibrate. Patient may receive diet today. No procedure/testing planned. Further ischemic evaluation (Nuclear stress testing versus cardiac catheterization)as clinical course unfolds. Case discussed with patient's daughter, Clementina, via telephone. She is in agreement with conservative management at this time. History of Present Illness Reason for Consultation: chest pain Requesting Physician: Dr. Hunt Attending Physician: Segundo Cordova MD History of Present Illness 75-year-old female present to the emergency department with chest discomfort. Discomfort began yesterday morning when walking her dog. Describes a pressure, 4 out of 10 in intensity. No associated shortness of breath. Discomfort persisted prompting ER evaluation. Troponin mildly elevated and flat on presentation. Chest pressure has resolved throughout the evening. Notes a mild soreness on her left side. She attributes discomfort to moving heavy boxes. Currently relocating from the [place] area to [place].No orthopnea, PND, or lower extremity edema. Denies palpitations, lightheadedness, dizziness, syncope, or near syncope. No focal weakness, slurred speech, visual changes, dysphagia, or paresthesias. Telemetry reveals AV paced rhythm. Pacemaker interrogation reports 98% AV sequential pacing, 2 monitored atrial fibrillation events recorded. Antitachycardia pacing settings disabled due to induction of high ventricular rates. Complex cardiovascular history summarized below. History of unicuspid aortic valve with severe calcific aortic valve stenosis, poststenotic dilatation, and moderate aortic insufficiency dating back to 2003. Aortic valve replacement with a #23 Mayer Medtronic mechanical prosthesis, pericardial patch repair of coronary sinus, replacement of the ascending aorta and an anterior root with right coronary artery implantation, coronary artery bypass grafting x1 (aortic graft-ramus intermedius) 2003. Echocardiogram performed in summer 2019 demonstrating severe mechanical aortic valve prosthesis stenosis. Repeat cardiac catheterization demonstrating occluded RCA, occluded SVG to ramus, and severe, 80% mid LAD stenosis. She was taken back to the operating room in March 2020. Bioprosthetic AVR, #23 Nahun-Traore magna ease pericardial valve implanted, coronary artery bypass grafting x1 with a TORRES to LAD performed. Postoperative atrial fibrillation noted. Coumadin was continued. Permanent pacemaker implanted in the past due to complete heart block. Allergies Allergy/AdvReac Type Severity Reaction Status Date / Time ALL STATIN DRUGS AdvReac BILATERAL Uncoded 05/12/21 23:04 LEG WEAKNESS Home Medications Medication Instructions Recorded Confirmed Type fenofibrate nanocrystallized 48 mg 48 mg PO QPM 10/08/18 05/12/21 History tablet furosemide 20 mg tablet 20 mg PO DAILY 10/08/18 05/12/21 History multivitamin (Multiple Vitamins) 1 tab PO DAILY 10/08/18 05/12/21 History acetaminophen 500 mg tablet 1,000 mg PO Q6H PRN 05/12/21 05/12/21 History gabapentin 300 mg capsule 300 mg PO TID 05/12/21 05/12/21 History metoprolol tartrate 25 mg tablet 25 mg PO BID 05/12/21 05/12/21 History potassium chloride 20 mEq 20 meq PO DAILY 05/12/21 05/12/21 History tablet,extended release warfarin 1 mg tablet 4 mg PO DAILY 05/12/21 05/12/21 History Patient History Medical History Aortic aneurysm Compression fracture HTN (hypertension) Pacemaker Surgical History H/O gastric bypass H/O hernia repair H/O: History of appendectomy Hx of cholecystectomy Mechanical heart valve present Family History Other Family history non-contributory Social History Smoking Status: Never smoker Second Hand Exposure: Yes (at apartment complex); Do You Dip or Chew Tobacco: No; Tobacco Cessation Education Requested by Patient: No Hx Alcohol Use: No Hx Substance Use: No Preferred Language: [place] Communication Ability: Effective Visual Impairment: No Limitations Hearing Ability: Normal Cylinder Sander Operator Required: No Beliefs That Will Affect Care: None marital status: Current Living Situation: Alone current occupational status: retired Other Information That Helps Us Care for You: No Feels Safe at Home: Yes Safety Concerns: Feels Safe At This Time Assistive Devices: Glasses Review of Systems Review of Systems: All systems reviewed & are unremarkable except as noted in Subjective Physical Exam Constitutional: well developed, well nourished and + obese; no acute distress Respiratory: normal respiratory effort; no respiratory distress, no labored breathing, no retractions and does not use accessory muscles Auscultation: lungs clear to auscultation bilaterally; breath sounds present, no diminished lung sounds, no crackles, no rales, no rhonchi and no wheezes Cardiovascular: Rate/Rhythm: regular rate and regular rhythm Heart Sounds: normal S1, normal S2 and + murmur (2/6Low pitched mid peaking systolic ejection murmur heard best at base.); no gallop and no cardiac rub Gastrointestinal (Abdomen): Inspection/Auscultation: abdomen normal to inspection and normal bowel sounds; abdomen not distended and no abdominal edema Percussion/Palpation: abdomen soft; abdomen nontender, no guarding and abdomen not rigid Neurologic: CN's II-XI intact bilaterally and moves all extremities; no focal motor deficits Motor/Sensory: no tremor Psychiatric: A+Ox3, euthymic affect Results & Data ([facility]) Vital Signs (Past 12 Hours) Vital Signs Temp Pulse Pulse Resp BP BP Pulse Ox 05/13/21 07:29 36.6 C 59 L 18 128/71 98 05/13/21 05:47 62 05/13/21 05:28 36.6 C 63 20 175/93 H 99 05/13/21 05:26 05/13/21 04:00 60 13 159/83 H 98 05/13/21 03:30 60 16 161/75 H 98 05/13/21 03:00 60 16 148/72 H 94 05/13/21 02:30 60 14 147/73 H 96 05/13/21 02:01 60 14 155/75 H 97 05/13/21 01:30 60 14 139/69 97 05/13/21 01:00 60 17 166/73 H 96 05/13/21 00:30 60 13 148/63 H 96 05/13/21 00:00 60 14 157/61 H 97 05/12/21 23:30 60 15 136/62 97 05/12/21 23:06 61 23 159/76 H 98 05/12/21 23:04 99 05/12/21 22:39 62 12 160/79 H 96 05/12/21 22:38 65 16 160/79 H 97 Pulse Ox 05/13/21 07:29 05/13/21 05:47 05/13/21 05:28 05/13/21 05:26 99 05/13/21 04:00 05/13/21 03:30 05/13/21 03:00 05/13/21 02:30 05/13/21 02:01 05/13/21 01:30 05/13/21 01:00 05/13/21 00:30 05/13/21 00:00 05/12/21 23:30 05/12/21 23:06 05/12/21 23:04 05/12/21 22:39 05/12/21 22:38 (1) Chest pain Chest pain type: unspecified Qualified Code(s): R07.9 - Chest pain, unspecified
[2021-05-13] MEDS: ASPIRIN 81 MG CHEW PO SCH (12:23)
--- NOTE | 2021-05-13 14:33 | Communication Note ---
Date of Service: May 13, 2021 Patient was seen and examined for follow-up of soreness around the area of the pacemaker. Patient said recently she was moving and she was carried heavy boxes. She said that she does not describe it as a chest pain. Denies any palpitation, dizziness, shortness of breath. Chest x-ray on admission showed no acute distress. Troponin elevated on admission with 0.242, then increased to 0.295 now trending down 0.247. Echo showed echocardiogram demonstrates preserved LV systolic function, abnormal septal wall motion consistent with pacemaker activation. INR 3.2 today. cardiology on board. Continue conservative management for now. Will check INR in am. If no plan for cardiac cath, Please resume Coumadin. Continue monitor closely in telemetry. MD Art
[2021-05-13] MEDS: FENOFIBRATE NANOCRYSTALLIZED 48 MG TABLET PO SCH (16:58)
[2021-05-13] MEDS: METOPROLOL TARTRATE 25 MG TAB PO SCH (20:10)
--- NOTE | 2021-05-14 06:24 | Electrocardiogram Report ---
Test Reason : Blood Pressure : / mmHG Vent. Rate : 072 BPM Atrial Rate : 072 BPM P-R Int : 222 ms QRS Dur : 200 ms QT Int : 454 ms P-R-T Axes : 044 134 111 degrees QTc Int : 497 ms AV dual-paced rhythm with prolonged AV conduction Abnormal ECG When compared with ECG of 08-OCT-2018 20:59, No significant change Confirmed by Herminio De La Cruz ([id number]) on 05/14/2021 6:24:28 AM Referred By: REFERRED SELF Confirmed By:Herminio De La Cruz
[2021-05-14] MEDS: METOPROLOL TARTRATE 25 MG TAB PO SCH ×2 (08:17→19:43)
[2021-05-14] MEDS: lisinopril 2.5 MG TAB PO SCH (08:17)
[2021-05-14] MEDS: GABAPENTIN 300 MG CAP PO SCH ×3 (08:17→19:43)
[2021-05-14] MEDS: MULTIVITAMIN TAB PO SCH (08:17)
[2021-05-14] MEDS: ASPIRIN 81 MG CHEW PO SCH (08:18)
[2021-05-14 08:36] LABS: Hematocrit (blood only) 40.5 % (37-47); Hemoglobin 12.5 g/dL (12.0-16.0); Mean Corpuscular Hemoglobin 27.5 pg (25-34); Mean Corpuscular Hgb Conc 30.9 g/dL (32-36); Mean Platelet Volume 10.3 fL (7.4-10.4); Platelet Count 203 K/uL (130-400); RDW Coefficient of Variation 14.1 % (11.5-14.5); RDW Standard Deviation 46.3 fL (36.4-46.3); Red Blood Count 4.55 M/uL (4.2-5.4); White Blood Count 3.66 K/uL (4.8-10.8)
[2021-05-14 08:44] LABS: INR 2.2 (0.9-1.1); Prothrombin Time 21.2 Seconds (9.0-12.0)
[2021-05-14 09:05] LABS: BUN Creatinine Ratio 18.4 (10-20); Calcium 8.8 mg/dl (8.5-10.1); Creatinine Clr Calc Pharmacy 61.9 ml/min; Est GFR (African American) 72.5 ml/min; Est GFR (Non-African American) 62.6 ml/min; Magnesium 2.3 mg/dl (1.8-2.4); Potassium 3.9 mmol/L (3.5-5.1)
[2021-05-14 09:06] LABS: Phosphorus 3.2 mg/dl (2.5-4.9)
--- NOTE | 2021-05-14 10:53 | Cardiology Progress Note ---
Date of Service May 14, 2021 Assessment & Plan (1) Elevated troponin I level: (2) Chest pain: (3) S/P AVR (aortic valve replacement): (4) S/P CABG x 1: (5) Pacemaker: (6) Paroxysmal atrial fibrillation: Plan: Further ischemic evaluation recommended. Inpatient versus outpatient Lexiscan nuclear stress test discussed. Patient scheduled for Lexiscan nuclear stress test in the a.m., 03/14/2021 Continue aspirin 81 mg daily, beta-saige, and RODOLFO inhibitor. Reports history of statin intolerance. Continue fenofibrate. N.p.o. except medications after midnight. No caffeine 24 hours prior to Lexiscan. Admission and Anticipated Discharge Date Admission Date: May 13, 2021 Subjective Patient seen them at the bedside. Feeling well today. No recurrent chest pain overnight. Telemetry reveals AV paced rhythm. Tolerating diet and medications. No palpitations, orthopnea, PND, or lower extremity edema. Review of Systems Review of Systems: All systems reviewed & are unremarkable except as noted in Subjective Results & Data ([facility]) Vital Signs (Past 12 Hours) Vital Signs Temp Pulse Resp BP Pulse Ox 05/14/21 10:45 36.7 C 91 H 17 112/76 98 05/14/21 07:02 36.5 C 56 L 19 127/78 95 05/14/21 03:18 36.7 C 60 17 104/68 95 05/13/21 23:08 36.4 C L 60 17 118/74 97 05/13/21 22:57 63 (1) Chest pain Chest pain type: unspecified Qualified Code(s): R07.9 - Chest pain, unspecified
--- NOTE | 2021-05-14 13:01 | Hospitalist Progress Note ---
Date of Service May 14, 2021 Assessment & Plan (1) Atypical chest pain: Plan: Possibly musculoskeletal given reproducibility and recent exertion preparing for relocation Rule out ACS, hx CAD status post CABG Other significant hx : SSS status post PPM on Coumadin, paced rhythm, INR therapeutic hx aortic stenosis status post bioprosthetic AVR hyperlipidemia/statin intolerance history gastric bypass Troponin elevation possibly from elevated BP Troponin peaked at 0.295, now downtrending Echo - EF 60 to 65%. There is moderate concentric LVH. Apical and septal motion abnormality may reflect pacemaker activation. LA is moderately dilated. There is bioprosthetic aortic valve. The gradient is abnormal for this prosthetic aortic valve. No bioprosthetic aortic valve regurg. There is mild mitral regurg. There is mild tricuspid regurg. Doppler findings do not suggest pulmonary hypertension. Cardiology consulted, plan for further ischemic evaluation. Lexiscan nuclear stress test ordered for tomorrow (05/15). N.p.o. after midnight. Continue aspirin 81 mg daily, beta-saige, and RODOLFO inhibitor. Reports history of statin intolerance. Continue fenofibrate. Analgesia Continue home BP meds, initiate lisinopril if still uncontrolled DVT prophylaxis. Coumadin INR goal between 2 and 3 if no procedure from cardiac standpoint Full code Patient's son, Ed Facer, can be contact at #[phone]. Admission and Anticipated Discharge Date Admission Date: May 13, 2021 Subjective Patient seen in follow-up of chest pain Currently in bed in no acute distress No recurrent chest pain overnight. Reports she had some dizziness and lightheadedness before, however not anymore Overall says that she feels comfortable, and had uneventful day so far There is no lower extremity edema. Plan for stress test by cardiology tomorrow Review of Systems Review of Systems: All systems reviewed & are unremarkable except as noted in Subjective Physical Exam Physical Exam: GENERAL: Elderly female, obese, in NAD HEENT: NC/AT, EOMI, PERRL, moist buccal mucosa NECK : Supple, short neck no tenderness CHEST : CTAB no wheezing, rhonchi, crackles HEART : RRR, systolic murmur ABDOMEN: Some distention, soft, nontender, + bowel sounds EXTREMITIES : no LE swelling, no LE tenderness, moves extremities spontaneously NEUROLOGIC : Alert oriented x3, no facial asymmetry, speech fluent, moves extremities SKIN: Normal color, warm Results & Data Results & Data ([facility]) Vital Signs (Past 12 Hours) Vital Signs Temp Pulse Resp BP Pulse Ox 05/14/21 10:45 36.7 C 91 H 17 112/76 98 05/14/21 07:02 36.5 C 56 L 19 127/78 95 05/14/21 03:18 36.7 C 60 17 104/68 95 Laboratory Results 05/14/21 05/14/21 05/14/21 Range/Units 08:20 08:20 08:20 WBC 3.66 L (4.8-10.8) K/uL RBC 4.55 (4.2-5.4) M/uL Hgb 12.5 (12.0-16.0) g/dL Hct 40.5 (37-47) % MCV 89.0 (80-100) fL MCH 27.5 (25-34) pg MCHC 30.9 L (32-36) g/dL RDW Std Deviation 46.3 (36.4-46.3) fL RDW Coeff of Derek 14.1 (11.5-14.5) % Plt Count 203 (130-400) K/uL MPV 10.3 (7.4-10.4) fL PT 21.2 H (9.0-12.0) Seconds INR 2.2 H (0.9-1.1) Sodium 140 (136-145) mmol/L Potassium 3.9 (3.5-5.1) mmol/L Chloride 109 H (98-107) mmol/L Carbon Dioxide 25 (21-32) mmol/L Anion Gap 6.0 (3-11) BUN 17 (7-18) mg/dl Creatinine 0.91 (0.6-1.2) mg/dl Est Cr Clr Drug Dosing 61.9 ml/min Est GFR ( Amer) 72.5 ml/min Est GFR (Non-Af Amer) 62.6 ml/min BUN/Creatinine Ratio 18.4 (10-20) Glucose 153 H (70-99) mg/dl Calcium 8.8 (8.5-10.1) mg/dl Phosphorus 3.2 (2.5-4.9) mg/dl Magnesium 2.3 (1.8-2.4) mg/dl Medications Administered Current Inpatient Medications Acetaminophen (Acetaminophen 325 Mg Tab) 650 mg PO Q4H PRN PRN Reason: Pain or Fever Stop: 06/12/21 05:25 Aspirin (Aspirin 81 Mg Chew) 81 mg PO DAILY [facility] Stop: 06/12/21 09:59 Last Admin: 05/14/21 08:18 Dose: 81 mg Documented by: Fenofibrate (Fenofibrate Nanocrystallized 48 Mg Tablet) 48 mg PO DAILY@1700 [facility] Stop: 06/12/21 16:59 Last Admin: 05/13/21 16:58 Dose: 48 mg Documented by: Gabapentin (Gabapentin 300 Mg Cap) 300 mg PO TID [facility] Stop: 06/12/21 08:59 Last Admin: 05/14/21 08:17 Dose: 300 mg Documented by: Promethazine HCl 12.5 mg/ (Sodium Chloride) 50.5 mls @ 202 mls/hr IV Q6H PRN PRN Reason: Nausea And Vomiting Stop: 06/12/21 05:25 Lorazepam (Ativan) 0.25 mg in 0.5 mls @ 0.5 mls/min IV Q4H PRN PRN Reason: Anxiety Stop: 06/12/21 05:25 Lisinopril (Lisinopril 2.5 Mg Tab) 2.5 mg PO QAM [facility] Stop: 06/12/21 06:39 Last Admin: 05/14/21 08:17 Dose: 2.5 mg Documented by: Metoprolol Tartrate (Metoprolol Tartrate 25 Mg Tab) 25 mg PO BID [facility] Stop: 06/12/21 20:59 Last Admin: 05/14/21 08:17 Dose: 25 mg Documented by: Morphine Sulfate (Morphine Sulfate 4 Mg/Ml 1 Ml Carp\Vial) 4 mg IV Q4H PRN PRN Reason: Pain Stop: 05/27/21 05:25 Multivitamins (Multivitamin Tab) 1 tab PO QAM [facility] Stop: 06/12/21 08:59 Last Admin: 05/14/21 08:17 Dose: 1 tab Documented by: Nitroglycerin (Nitroglycerin Sl 0.4 Mg/Tab Tab) 0.4 mg SL UD PRN PRN Reason: Chest Pain Stop: 06/12/21 05:25 Tramadol HCl (Tramadol Hcl 50 Mg Tablet) 25 - 50 mg PO Q4H PRN PRN Reason: Pain Stop: 06/12/21 05:25
--- NOTE | 2021-05-14 13:24 | Electrocardiogram Report ---
Test Reason : Blood Pressure : / mmHG Vent. Rate : 061 BPM Atrial Rate : 060 BPM P-R Int : 174 ms QRS Dur : 210 ms QT Int : 508 ms P-R-T Axes : 160 131 114 degrees QTc Int : 511 ms AV dual-paced rhythm Abnormal ECG When compared with ECG of 12-MAY-2021 21:07, Vent. rate has decreased BY 11 BPM Confirmed by Herminio De La Cruz ([id number]) on 05/14/2021 1:23:56 PM Referred By: REFERRED SELF Confirmed By:Herminio De La Cruz
[2021-05-14] MEDS: FENOFIBRATE NANOCRYSTALLIZED 48 MG TABLET PO SCH (17:32)
[2021-05-14] MEDS: ACETAMINOPHEN 325 MG TAB PO PRN (20:49)
[2021-05-15] MEDS: ACETAMINOPHEN 325 MG TAB PO PRN (04:05)
--- NOTE | 2021-05-15 05:28 | Electrocardiogram Report ---
Test Reason : Blood Pressure : / mmHG Vent. Rate : 061 BPM Atrial Rate : 061 BPM P-R Int : 172 ms QRS Dur : 200 ms QT Int : 508 ms P-R-T Axes : 094 159 111 degrees QTc Int : 511 ms AV dual-paced rhythm Abnormal ECG When compared with ECG of 13-MAY-2021 06:12, No significant change was found Confirmed by Herminio De La Cruz ([id number]) on 05/15/2021 5:28:06 AM Referred By: REFERRED SELF Confirmed By:Herminio De La Cruz
[2021-05-15 07:20] LABS: Hematocrit (blood only) 38.2 % (37-47); Hemoglobin 12.2 g/dL (12.0-16.0); Mean Corpuscular Hemoglobin 27.4 pg (25-34); Mean Corpuscular Hgb Conc 31.9 g/dL (32-36); Mean Corpuscular Volume 85.8 fL (80-100); Mean Platelet Volume 10.2 fL (7.4-10.4); Platelet Count 191 K/uL (130-400); RDW Coefficient of Variation 13.9 % (11.5-14.5); RDW Standard Deviation 43.7 fL (36.4-46.3); Red Blood Count 4.45 M/uL (4.2-5.4); White Blood Count 3.48 K/uL (4.8-10.8)
[2021-05-15 07:31] LABS: INR 1.6 (0.9-1.1)
[2021-05-15] MEDS ORDERED: REGADENOSON 0.4 MG/5 ML SYR IV ONE (07:50)
[2021-05-15 08:01] LABS: BUN Creatinine Ratio 25.2 (10-20); Calcium 8.8 mg/dl (8.5-10.1); Creatinine Clr Calc Pharmacy 75.2 ml/min; Est GFR (African American) 91.7 ml/min; Est GFR (Non-African American) 79.1 ml/min; Magnesium 2.2 mg/dl (1.8-2.4); Phosphorus 3.9 mg/dl (2.5-4.9); Potassium 4.6 mmol/L (3.5-5.1)
[2021-05-15] MEDS: GABAPENTIN 300 MG CAP PO SCH ×2 (10:24→14:30)
[2021-05-15] MEDS: METOPROLOL TARTRATE 25 MG TAB PO SCH (10:24)
[2021-05-15] MEDS: MULTIVITAMIN TAB PO SCH (10:24)
[2021-05-15] MEDS: lisinopril 2.5 MG TAB PO SCH (10:24)
[2021-05-15] MEDS: ASPIRIN 81 MG CHEW PO SCH (10:25)
--- NOTE | 2021-05-15 10:44 | Myocardial Perfusion Study ---
Date of Service May 15, 2021 Myocardial Perfusion Study [facility] Myocardial Perfusion Study Report Conclusion: 1. Lexiscan nuclear stress test negative for inducible ischemia 2. Normal gated SPECT imaging, calculated ejection fraction 71% 3. Focus of extracardiac isotopic tracer uptake involving the anterior chest wall, possibly breast. Clinical correlation recommended. Consider further imaging with CT. Indication: Chest discomfort, mildly elevated troponin, history of coronary disease with coronary artery bypass grafting x1 with a pedicled TORRES to the LAD. The patient performed a stress test according to the Lexiscan protocol for 3 minutes. Workload of 1.0 METS achieved. The resting heart rate was a 60 bpm. Maximum heart rate 68 bpm. This value represents 46% of the maximal, age- predicted heart rate. The resting blood pressure was 176/71. The peak blood pressure was 176/71. Normal heart rate and blood pressure response to Lexiscan infusion. Resting ECG: AV paced rhythm. Stress ECG: Nondiagnostic for ischemia. AV paced rhythm. Symptoms: None. Myocardial perfusion imaging report summary. For the stress portion of the study 32.31 mCi of technetium 99m Cardiolite IV was injected at 9:10 AM on 05/15/2021. 30 minutes following the injection imaging of the heart was performed multiple injections. For the rest portion of the study 10.69 mCi of technetium 99m Cardiolite was injected IV at oh 7:40 AM. 1 hour following the injection, imaging of the heart was performed in the same projections. Raw data: There is a small focus of extracardiac isotopic tracer uptake involving the anterior chest. Possibly breast tissue related. Right ventricle: Not well visualized. Left ventricle: Normal resting left ventricular size. Paradoxical septal motion consistent with postoperative state and/or ventricular pacing. Calculated ejection fraction 71% Resting images: There is a focal defect of moderate intensity involving the left ventricular apex. There is a second defect of mild intensity involving the base and mid lateral wall. The remaining left ventricular myocardial wall segments demonstrate normal perfusion. Stress images: There is a small defect of mild intensity involving the base lateral wall. Otherwise, no significant myocardial perfusion defects. With normal wall motion, lateral defect likely related to soft tissue attenuation artifact. No reversible defects to suggest ischemia.
--- NOTE | 2021-05-15 10:50 | Cardiology Progress Note ---
Date of Service May 15, 2021 Assessment & Plan (1) Elevated troponin I level: (2) Chest pain: (3) S/P AVR (aortic valve replacement): (4) S/P CABG x 1: (5) Pacemaker: (6) Paroxysmal atrial fibrillation: Plan: Lexiscan nuclear stress test negative for inducible ischemia. There is a small focus of extracardiac tracer uptake noted involving the anterior chest. Further imaging recommended. Case discussed with internal medicine. Continue aspirin 81 mg daily, beta-saige, and RODOLFO inhibitor. Reports history of statin intolerance. Continue fenofibrate. No further inpatient testing from a cardiovascular perspective. Test results and recommendations discussed with patient's daughter via telephone. Admission and Anticipated Discharge Date Admission Date: May 14, 2021 Subjective Patient seen and examined the bedside. Feeling well from a cardiovascular perspective. No recurrent chest discomfort. Telemetry reveals AV sequential pacing. Tolerating medications. N.p.o. for Lexiscan nuclear stress test. Review of Systems Review of Systems: All systems reviewed & are unremarkable except as noted in Subjective Physical Exam Constitutional: well developed, well nourished and + obese; no acute distress Respiratory: normal respiratory effort; no respiratory distress, no labored breathing, no retractions and does not use accessory muscles Auscultation: lungs clear to auscultation bilaterally; breath sounds present, no diminished lung sounds, no crackles, no rales, no rhonchi and no wheezes Cardiovascular: Rate/Rhythm: regular rate and regular rhythm Heart Sounds: normal S1, normal S2 and + murmur (2/6Low pitched mid peaking systolic ejection murmur heard best at base.); no gallop and no cardiac rub Gastrointestinal (Abdomen): Inspection/Auscultation: abdomen normal to inspection and normal bowel sounds; abdomen not distended and no abdominal edema Percussion/Palpation: abdomen soft; abdomen nontender, no guarding and abdomen not rigid Neurologic: CN's II-XI intact bilaterally and moves all extremities; no focal motor deficits Motor/Sensory: no tremor Psychiatric: A+Ox3, euthymic affect Results & Data ([facility]) Vital Signs (Past 12 Hours) Vital Signs Temp Pulse Resp BP Pulse Ox 05/15/21 07:37 36.6 C 58 L 18 125/76 95 05/15/21 04:44 36.6 C 60 18 139/67 100 05/14/21 23:19 36.9 C 66 18 96/61 L 96 (1) Chest pain Chest pain type: unspecified Qualified Code(s): R07.9 - Chest pain, unspecified
[2021-05-15 10:54] VITALS: BP 169/81; TEMP 97.3; O2SAT 98
--- NOTE | 2021-05-15 14:17 | Hospitalist Progress Note ---
Date of Service May 15, 2021 Assessment & Plan (1) Atypical chest pain: Plan: Possibly musculoskeletal given reproducibility and recent exertion preparing for relocation Rule out ACS, hx CAD status post CABG Other significant hx : SSS status post PPM on Coumadin, paced rhythm, INR therapeutic hx aortic stenosis status post bioprosthetic AVR hyperlipidemia/statin intolerance history gastric bypass Troponin elevation possibly from elevated BP Troponin peaked at 0.295, now downtrending Echo - EF 60 to 65%. There is moderate concentric LVH. Apical and septal motion abnormality may reflect pacemaker activation. LA is moderately dilated. There is bioprosthetic aortic valve. The gradient is abnormal for this prosthetic aortic valve. No bioprosthetic aortic valve regurg. There is mild mitral regurg. There is mild tricuspid regurg. Doppler findings do not suggest pulmonary hypertension. Cardiology consulted,further ischemic evaluation. Underwent Lexiscan nuclear stress test today (05/15). Negative for inducible ischemia. There is a small focus of extracardiac tracer uptake noted involving the anterior chest. Further imaging recommended. Discussed with radiology and cardiology, recommend mammogram as outpatient, if unrevealing, would recommend CT chest. Continue aspirin 81 mg daily, beta-saige, and RODOLFO inhibitor. Reports history of statin intolerance. Continue fenofibrate. DVT prophylaxis. Coumadin INR goal between 2 and 3 Full code Patient's son, Ed Facer, can be contact at #[phone]. Admission and Anticipated Discharge Date Admission Date: May 14, 2021 Subjective Patient seen in follow-up of chest pain Currently sitting up in bed in no acute distress No recurrent chest pain Denies any lightheadedness, dizziness, shortness of breath Overall says that she feels comfortable Underwent stress test today, negative for inducible ischemia. Review of Systems Review of Systems: All systems reviewed & are unremarkable except as noted in Subjective Physical Exam Physical Exam: GENERAL: Elderly female, obese, in NAD HEENT: NC/AT, EOMI, PERRL, moist buccal mucosa NECK : Supple, short neck no tenderness CHEST : CTAB no wheezing, rhonchi, crackles HEART : RRR, soft systolic murmur ABDOMEN: Some distention, soft, nontender, + bowel sounds EXTREMITIES : no LE swelling, no LE tenderness, moves extremities spontaneously NEUROLOGIC : Alert oriented x3, no facial asymmetry, speech fluent, moves extremities SKIN: Normal color, warm Results & Data Results & Data ([facility]) Vital Signs (Past 12 Hours) Vital Signs Temp Pulse Resp BP Pulse Ox 05/15/21 10:53 36.3 C L 64 18 169/81 H 98 05/15/21 10:48 62 05/15/21 07:37 36.6 C 58 L 18 125/76 95 05/15/21 04:44 36.6 C 60 18 139/67 100 Laboratory Results 05/15/21 05/15/21 05/15/21 Range/Units 07:05 07:05 07:05 WBC 3.48 L (4.8-10.8) K/uL RBC 4.45 (4.2-5.4) M/uL Hgb 12.2 (12.0-16.0) g/dL Hct 38.2 (37-47) % MCV 85.8 (80-100) fL MCH 27.4 (25-34) pg MCHC 31.9 L (32-36) g/dL RDW Std Deviation 43.7 (36.4-46.3) fL RDW Coeff of Derek 13.9 (11.5-14.5) % Plt Count 191 (130-400) K/uL MPV 10.2 (7.4-10.4) fL PT 16.0 H (9.0-12.0) Seconds INR 1.6 H (0.9-1.1) Sodium 142 (136-145) mmol/L Potassium 4.6 D (3.5-5.1) mmol/L Chloride 111 H (98-107) mmol/L Carbon Dioxide 28 (21-32) mmol/L Anion Gap 4.0 (3-11) BUN 19 H (7-18) mg/dl Creatinine 0.75 (0.6-1.2) mg/dl Est Cr Clr Drug Dosing 75.2 ml/min Est GFR ( Amer) 91.7 ml/min Est GFR (Non-Af Amer) 79.1 ml/min BUN/Creatinine Ratio 25.2 H (10-20) Glucose 89 (70-99) mg/dl Calcium 8.8 (8.5-10.1) mg/dl Phosphorus 3.9 (2.5-4.9) mg/dl Magnesium 2.2 (1.8-2.4) mg/dl Medications Administered Current Inpatient Medications Acetaminophen (Acetaminophen 325 Mg Tab) 650 mg PO Q4H PRN PRN Reason: Pain or Fever Stop: 06/12/21 05:25 Last Admin: 05/15/21 04:05 Dose: 650 mg Documented by: Aspirin (Aspirin 81 Mg Chew) 81 mg PO DAILY [facility] Stop: 06/12/21 09:59 Last Admin: 05/15/21 10:25 Dose: 81 mg Documented by: Fenofibrate (Fenofibrate Nanocrystallized 48 Mg Tablet) 48 mg PO DAILY@1700 [facility] Stop: 06/12/21 16:59 Last Admin: 05/14/21 17:32 Dose: 48 mg Documented by: Gabapentin (Gabapentin 300 Mg Cap) 300 mg PO TID [facility] Stop: 06/12/21 08:59 Last Admin: 05/15/21 10:24 Dose: 300 mg Documented by: Promethazine HCl 12.5 mg/ (Sodium Chloride) 50.5 mls @ 202 mls/hr IV Q6H PRN PRN Reason: Nausea And Vomiting Stop: 06/12/21 05:25 Lorazepam (Ativan) 0.25 mg in 0.5 mls @ 0.5 mls/min IV Q4H PRN PRN Reason: Anxiety Stop: 06/12/21 05:25 Lisinopril (Lisinopril 2.5 Mg Tab) 2.5 mg PO QAM [facility] Stop: 06/12/21 06:39 Last Admin: 05/15/21 10:24 Dose: 2.5 mg Documented by: Metoprolol Tartrate (Metoprolol Tartrate 25 Mg Tab) 25 mg PO BID [facility] Stop: 06/12/21 20:59 Last Admin: 05/15/21 10:24 Dose: 25 mg Documented by: Morphine Sulfate (Morphine Sulfate 4 Mg/Ml 1 Ml Carp\Vial) 4 mg IV Q4H PRN PRN Reason: Pain Stop: 05/27/21 05:25 Multivit[facility] ([facility]ivitamin Tab) [facility] Stop: 06/12/21 08:59 Last Admin: 05/15/21 10:24 Dose: 1 tab Documented by: Nitroglycerin (Nitroglycerin Sl 0.4 Mg/Tab Tab) 0.4 mg SL UD PRN PRN Reason: Chest Pain Stop: 06/12/21 05:25 Tramadol HCl (Tramadol Hcl 50 Mg Tablet) 25 - 50 mg PO Q4H PRN PRN Reason: Pain Stop: 06/12/21 05:25
--- NOTE | 2021-05-15 14:52 | Discharge Summary ---
Date of Service May 15, 2021 Admission HPI Per Admitting Provider History obtained from patient and records. Medical history significant for CAD status post CABG, SSS status post PPM on Coumadin, aortic stenosis status post bioprosthetic AVR, history of cardiac arrest as per records, hypertension, hyperlipidemia, statin intolerance, history gastric bypass. Patient underwent redo bioprosthetic AVR and CABG at [facility] last March 2020 after she was found to have mechanical AVR stenosis and mid LAD stenosis on cardiac cath at [facility]. Subsequent rehab stay followed by discharge to a home close to [place], [place] where patient resided with her daughter. Patient in the process of relocating back to [facility] this month. She was moving boxes over the weekend. This morning patient noted left-sided chest pressure with some shortness of br eath while walking her dog. No cough. Chest pain somewhat different from episodes in the past. Some dizziness as well. Chest pain somewhat hurt more when moving her left arm. Patient currently comfortable at the ER. Medical History as above Surgical History : Breast lesion excision, gastric bypass, PPM, appendectomy, cholecystectomy, CABG, AVR Family History : Parkinson's disease, heart disease Personal/Social history : Non-smoker, no EtOH intake, retired superintendent schools Admission Exam Per Admitting Provider GENERAL: Comfortable, no respiratory distress, obese, pleasant SKIN: Normal color, warm, HEENT: [place]ger palpebral conjunctivae, no ptosis, moist buccal mucosa NECK : Supple, short neck no tenderness CHEST : CTA, left side chest wall tenderness HEART : RRR, systolic murmur ABDOMEN: Some distention, nontender EXTREMITIES : Minimal LE swelling, no LE tenderness, no other conspicuous deformities noted NEUROLOGIC : Coherent, no facial asymmetry, no other gross focality Principal Diagnosis Chest pain, elevated troponin, history of CABG, paroxysmal A. fib Discharge Exam GENERAL: Elderly female, obese, in NAD HEENT: NC/AT, EOMI, PERRL, moist buccal mucosa NECK : Supple, short neck no tenderness CHEST : CTAB no wheezing, rhonchi, crackles HEART : RRR, soft systolic murmur ABDOMEN: Some distention, soft, nontender, + bowel sounds EXTREMITIES : no LE swelling, no LE tenderness, moves extremities spontaneously NEUROLOGIC : Alert oriented x3, no facial asymmetry, speech fluent, moves extremities SKIN: Normal color, warm Discharge Data Allergies Allergy/AdvReac Type Severity Reaction Status Date / Time ALL STATIN DRUGS AdvReac BILATERAL Uncoded 05/12/21 23:04 LEG WEAKNESS Consultations 05/13/21 02:26 ED Decision to Admit Stat 05/13/21 05:26 Consult Cardiology Routine Hospital Course (1) Atypical chest pain: Possibly musculoskeletal given reproducibility and recent exertion preparing for relocation Rule out ACS, hx CAD status post CABG Other significant hx : SSS status post PPM on Coumadin, paced rhythm, INR therapeutic hx aortic stenosis status post bioprosthetic AVR hyperlipidemia/statin intolerance history gastric bypass Troponin elevation possibly from elevated BP Troponin peaked at 0.295, now downtrending Echo - EF 60 to 65%. There is moderate concentric LVH. Apical and septal motion abnormality may reflect pacemaker activation. LA is moderately dilated. There is bioprosthetic aortic valve. The gradient is abnormal for this prosthetic aortic valve. No bioprosthetic aortic valve regurg. There is mild mitral regurg. There is mild tricuspid regurg. Doppler findings do not suggest pulmonary hypertension. Cardiology consulted,further ischemic evaluation. Underwent Lexiscan nuclear stress test today (05/15). Negative for inducible ischemia. There is a small focus of extracardiac tracer uptake noted involving the anterior chest. Further imaging recommended. Discussed with radiology and cardiology, recommend mammogram as outpatient, if unrevealing, would recommend CT chest. Continue aspirin 81 mg daily, beta-saige, and RODOLFO inhibitor. Reports history of statin intolerance. Continue fenofibrate. DVT prophylaxis. Coumadin INR goal between 2 and 3 Full code Patient's son, Ed Facer, can be contact at #[phone]. Total Time Total Time Spent Total Time Spent (In Minutes): 35 Discharge Plan Discharge Items Patient Disposition: Home - Self-Care Reason For Visit: cp Discharge Diagnosis: Chest pain, elevated troponin, history of CABG, paroxysmal A. fib Activity: Per Instructions section Non-emergency contact: Primary Care Provider and Commercial Finance Manager Call non-emergency contact if: you have any medication questions and your symptoms worsen Follow-up/Referrals: Wallace Mejia DO [Primary Care Provider] - (Date & Time 05/20/2021 2:00 PM Provider Wallace Mejia DO Department [facility] ) Diet: Heart Healthy Add Attending Provider Instructions: Follow up with your primary care doctor, the appointment is scheduled for you for May 20. Take daily aspirin 81 mg, metoprolol as previously prescribed, and also start taking lisinopril 2.5 mg daily. As discussed, you will need a mammogram for further evaluation. Pending Studies at Discharge: No Stand-Alone Forms: My [facility], Smoking Cessation Medications and DC Order Prescriptions: New lisinopril 2.5 mg Tablet 2.5 mg PO QAM Qty: 30 RF: 0 aspirin [Children's Aspirin] 81 mg Tablet,Chewable 81 mg PO DAILY Qty: 30 RF: 0 Continued fenofibrate nanocrystallized 48 mg Tablet 48 mg PO QPM RF: 0 multivitamin [Multiple Vitamins] Tablet 1 tab PO DAILY RF: 0 furosemide 20 mg Tablet 20 mg PO DAILY RF: 0 acetaminophen [Tylenol Ex Str Rapid Release] 500 mg Tablet 1,000 mg PO Q6H PRN (Reason: Pain) RF: 0 warfarin 1 mg tablet 4 mg PO DAILY RF: 0 metoprolol tartrate 25 mg tablet 25 mg PO BID RF: 0 potassium chloride 20 mEq tablet extended release 20 meq PO DAILY RF: 0 gabapentin 300 mg capsule 300 mg PO TID RF: 0 Discharge Orders: Discharge Order (Routine); Ordered 05/15/21 Ordered By: Júnior Traore Admission Data Admit Date/Time: 05/14/21 19:44 Attending Provider: Júnior Traore Admit Provider: Jamie Noonan Primary Care Provider: Wallace Mejia Other Providers: Jamie Noonan ; Shamir Ware ; Ralph Reilly ; Al Farfan ; Theron Bowden ; Jean Marie Berg ; Luis Felipe Machado ; Reva Wilson ; Chrystal Schaeffer ; Mariana Sherman ; Nitin Mcnair ; Elizabeth Weinberg ; Segundo Cordova
[2021-05-15 15:07] VITALS: PULSE 63
== END 2021-05-15 16:02 | disposition home or self-care (01) | DRG 313 ==
LOC: 2S 20:52 → ED 20:52 → SUATTDRO 05-13 01:02 → 2S 05-13 05:15
DX: I10 Essential (primary) hypertension; R79.89 Other specified abnormal findings of blood chemistry; I25.10 Atherosclerotic heart disease of native coronary artery without angina pectoris; Z79.01 Long term (current) use of anticoagulants; Z95.0 Presence of cardiac pacemaker; Z98.84 Bariatric surgery status; Z95.1 Presence of aortocoronary bypass graft; Z88.8 Allergy status to other drugs, medicaments and biological substances; E78.5 Hyperlipidemia, unspecified; I48.0 Paroxysmal atrial fibrillation; R07.89 Other chest pain

== ENCOUNTER 2022-04-20 10:03 | Inpatient (IN) ==
[2022-04-20] MEDS ORDERED: ACETAMINOPHEN 1,000 MG/100 ML VIAL IV STA (10:54)
--- NOTE | 2022-04-20 11:35 | XRay Report ---
XR ribs RT min 2V w [id number] CLINICAL HISTORY: right posterior rib pain COMPARISON: Chest radiograph May 12, 2021. FINDINGS: There is no pneumothorax or pleural effusion. No acute right rib fractures are identified. There are median sternotomy wires, dual lead left subclavian pacemaker and a prosthetic aortic valve . No consolidation is identified. Mild reticulonodular interstitial thickening is similar to prior ex am. IMPRESSION: No pneumothorax. No acute rib fractures. ACT 112: Negative or not required by law. Electronically signed by: Javier Durham M.D. 04/20/2022 11:32 AM
--- NOTE | 2022-04-20 11:56 | CT Scan Report ---
CT OF THE LUMBAR SPINE CLINICAL HISTORY: Lumbar spine pain following fall. COMPARISON STUDY: CT of the abdomen and pelvis April 14, 2022. TECHNIQUE: Helical axial images of the lumbar spine were obtained. Sagittal and coronal reconstruct ions were viewed. Automated exposure control was utilized for the study. A dose lowering technique was utilized adhering to the principles of ALARA. FINDINGS: For purposes of numbering on this exam, the L5-S1 disc space is assigned to axial image 207 of 355. There is a transitional vertebra at the lumbosacral junction which is designated as S1 for p urposes of numbering on this exam. This is partially lumbarized. When utilizing this numbering scheme , there is a moderate compression deformity of the superior plate of L1. This is unchanged since abdo iran CT of April 14, 2022 and likely chronic. No acute lumbar spine fracture is noted. There is a l ucency through the right lateral osteophytes along the inferior endplate of L1 which is also unchange d since prior CT. No acute lumbar spine fracture is noted. Mild levoscoliosis of the lumbar spine is present. Central canal and neural foramen are suboptimally assessed by CT. Severe multilevel facet ar throsis is present. There is moderate multilevel degenerative disc disease. IMPRESSION: 1. No acute lumbar spine fracture or subluxation. 2. Lucency through right lateral osteophytes along the inferior endplate of L1. This was present on a bdominal CT of April 14, 2022. This suggests a subacute to chronic nondisplaced fracture. 3. Old L1 compression deformity. 4. Severe multilevel facet arthrosis and moderate degenerative disc disease within the lumbar spine. 5. Mild levoscoliosis of the lumbar spine. 6. Transitional vertebra at the lumbosacral junction. Please see above numbering scheme of the lumbar spine. ACT 112: Negative or not required by law. Electronically signed by: Javier Durham M.D. 04/20/2022 11:53 AM
[2022-04-20 12:04] LABS: Basophils # (auto) 0.01 K/uL (0-0.2); Basophils % (auto) 0.1 %; Eosinophils # (auto) 0.01 K/uL (0-0.50); Eosinophils % (auto) 0.1 %; Hematocrit (blood only) 37.1 % (34.1-44.9); Hemoglobin 11.9 g/dl (12.0-16.0); Immature Granulocytes # (auto) 0.02 K/uL (0.00-0.02); Immature Granulocytes % (auto) 0.2 %; Lymphocytes # (auto) 1.34 K/uL (1.2-3.4); Lymphocytes % (auto) 16.1 %; Mean Corpuscular Hemoglobin 27.4 pg (25.0-34.0); Mean Corpuscular Hgb Conc 32.1 g/dL (32.0-36.0); Mean Corpuscular Volume 85.5 fL (80.0-100.0); Mean Platelet Volume 10.4 fL (9.4-12.3); Monocytes # (auto) 0.66 K/uL (0.24-0.82); Monocytes % (auto) 7.9 %; Neutrophils # (auto) 6.28 K/uL (1.4-6.5); Neutrophils % (auto) 75.6 %; Platelet Count 272 K/uL (130-400); RDW Coefficient of Variation 13.9 % (11.5-14.5); RDW Standard Deviation 43.1 fL (36.4-46.3); Red Blood Count 4.34 M/uL (3.93-5.22); White Blood Count 8.32 K/ul (4.8-10.8)
[2022-04-20 12:23] LABS: Albumin Globulin Ratio 1.3 (0.9-2); Albumin Level 3.9 gm/dl (3.4-5.0); BUN Creatinine Ratio 27.9 (10-20); Bilirubin,Total 0.6 mg/dl (0.2-1.0); Calcium 9.3 mg/dl (8.5-10.1); Creatinine Clr Calc Pharmacy 63.6 ml/min; Est GFR (African American) 77.1 ml/min; Est GFR (Non-African American) 66.6 ml/min; Globulin 2.9 gm/dl (2.5-4.0); Magnesium 2.1 mg/dl (1.7-2.4); Total Protein 6.8 gm/dl (6.0-8.3)
--- NOTE | 2022-04-20 13:20 | Emergency Department Note ---
History of Present Illness General Chief complaint: Back Injury/Pain Time Seen by Provider: 04/20/22 10:36 Source: patient Mode of arrival: EMS Limitations: no limitations History of Present Illness Provider complaint: Back pain, fall Maximum Pain Intensity: 6 This is a 76-year-old female presents emergency room complaining of back pain. Patient states she was at [employer] and someone placed a box behind her and she stepped backwards and subsequently fell landing on her back. She states this was 2 days ago. She states since that time she is trying to rest and see if the back pain would improve but it has not. She states she had a hard time even getting out of bed and getting dressed this morning so her family decided to bring her to the emergency room. Patient denies any radiation of the pain into her legs, she denies any coming paresthesias. No saddle anesthesia. She denies any change in urine or stools. She denies fevers, chills, or abdominal pain. Patient states 40 years ago she did have a back injury in her low back. She denies any history of kidney problems. She does not routinely follow with a clinic specialist. Pt seen during a time of high acuity and national emergency pandemic while wearing PPE. Home Medications Medication Instructions Recorded Confirmed Type fenofibrate nanocrystallized 48 mg 48 mg PO QPM 10/08/18 04/20/22 History tablet furosemide 20 mg tablet 20 mg PO DAILY 10/08/18 04/20/22 History multivitamin (Multiple Vitamins 1 tab PO DAILY 10/08/18 04/20/22 History tablet) acetaminophen 500 mg tablet 1,000 mg PO Q6H PRN Pain 05/12/21 04/20/22 History gabapentin 300 mg capsule 300 mg PO TID 05/12/21 04/20/22 History metoprolol tartrate 25 mg tablet 25 mg PO BID 05/12/21 04/20/22 History potassium chloride 20 mEq 20 meq PO DAILY 05/12/21 04/20/22 History tablet,extended release warfarin 1 mg tablet 4 mg PO [id number]@1600 05/12/21 04/20/22 History aspirin 81 mg chewable tablet 81 mg PO DAILY #30 tabs 05/15/21 04/20/22 Rx (Children's Aspirin) lisinopril 2.5 mg tablet 2.5 mg PO QAM #30 tabs 05/15/21 04/20/22 Rx ondansetron HCl 4 mg tablet 4 mg PO Q6H PRN nausea and 04/14/22 04/20/22 Rx vomiting #20 tabs oxycodone 5 mg tablet 5 mg PO Q6H PRN pain #15 tabs 04/14/22 04/20/22 Rx pantoprazole 40 mg tablet,delayed 40 mg PO DAILY 4 weeks #28 tabs 04/14/22 04/20/22 Rx release (Protonix) alendronate 70 mg tablet 70 mg PO Tu@0900 04/20/22 04/20/22 History anastrozole 1 mg tablet 1 mg PO QAM 04/20/22 04/20/22 History baclofen 10 mg tablet 10 mg PO HS 04/20/22 04/20/22 History prednisone 10 mg tablet 10 mg PO UD 04/20/22 04/20/22 History warfarin 1 mg tablet 1 mg PO MOFR@1600 04/20/22 04/20/22 History Allergies Allergy/AdvReac Type Severity Reaction Status Date / Time ALL STATIN DRUGS AdvReac BILATERAL Uncoded 04/20/22 17:00 LEG WEAKNESS Past Med/Surg History Medical History Aortic aneurysm Compression fracture H/O malignant neoplasm of breast HTN (hypertension) Pacemaker Surgical History H/O gastric bypass H/O hernia repair H/O: History of appendectomy Hx of cholecystectomy Mechanical heart valve present Family History Other Family history non-contributory Social History Smoking Status: Never smoker Second Hand Exposure: Yes (at apartment complex); Hx Alcohol Use: No Hx Substance Use: No Preferred Language: Kinyarwanda Communication Ability: Effective Visual Impairment: No Limitations Hearing Ability: Normal File System Installer Required: No Beliefs That Will Affect Care: None marital status: Current Living Situation: Alone current occupational status: retired Feels Safe at Home: Yes Assistive Devices: Glasses Review of Systems A total of 10 systems reviewed and were otherwise negative All systems reviewed & are unremarkable except as noted in HPI & below Physical Exam Vital Signs Vital Signs - 24 hr 04/20/22 10:06 04/20/22 10:30 04/20/22 11:00 Temperature 37.0 C Temperature Source Oral Pulse Rate 71 Pulse Rate [Finger] Pulse Rate from SpO2 Sensor 59 L 63 Pulse Rhythm Regular Pulse Rhythm [Finger] Pulse Strength Normal Pulse Strength [Finger] Respiratory Rate 19 Respiratory Effort / Characteristics Non-Labored Respiratory Depth Normal Respiratory Pattern Regular Blood Pressure 167/82 H 138/79 161/101 H Blood Pressure [Left Arm] Blood Pressure Mean 110 98 121 Blood Pressure Mean [Left Arm] Blood Pressure Position Lying Blood Pressure Position [Left Arm] Pulse Oximetry 99 98 97 Oxygen Delivery Method Room Air Room Air Room Air Sepsis Recent Fever Within 48 Hours No Sepsis New/Unexplained Change in Mental Status N/A Sepsis Action Taken by Nursing No Action Required 04/20/22 12:00 04/20/22 13:14 04/20/22 15:45 Temperature Temperature Source Pulse Rate Pulse Rate [Finger] 60 60 Pulse Rate from SpO2 Sensor 50 L Pulse Rhythm Pulse Rhythm [Finger] Regular Pulse Strength Pulse Strength [Finger] Normal Respiratory Rate 18 20 Respiratory Effort / Characteristics Non-Labored Spontaneous Respiratory Depth Normal Respiratory Pattern Regular Blood Pressure 136/76 Blood Pressure [Left Arm] 121/69 151/71 H Blood Pressure Mean 96 Blood Pressure Mean [Left Arm] 86 97 Blood Pressure Position Blood Pressure Position [Left Arm] Lying Pulse Oximetry 98 100 97 Oxygen Delivery Method Room Air Room Air Room Air Sepsis Recent Fever Within 48 Hours Sepsis New/Unexplained Change in Mental Status Sepsis Action Taken by Nursing GENERAL: alert, well appearing, well nourished, no distress, non-toxic EYE EXAM: normal conjunctiva, PERRL and EOM's grossly intact OROPHARYNX: no exudate, no erythema, lips, buccal mucosa, and tongue normal and mucous membranes are moist NECK: supple, no nuchal rigidity, no adenopathy, non-tender LUNGS: Clear to auscultation. Normal chest wall mechanics, no w/r/r HEART: no murmurs, S1 normal and S2 normal ABDOMEN: abdomen soft, non-tender, normo-active bowel sounds, no masses, no rebound or guarding. BACK: Back is symmetrical on inspection and there is no deformity, no midline tenderness, no CVA tenderness. Pain with palpation over the right lumbar paraspinal region. No evidence of trauma. SKIN: no rashes and no bruising UPPER EXTREMITIES: upper extremities are grossly normal. FROM, nml pulses b/l. LOWER EXTREMITIES: No pitting edema. FROM, nml pulses b/l. Sensation intact bilaterally. NEURO EXAM: Normal sensorium, cranial nerves II-XII grossly intact, normal speech, no gross weakness of arms, no gross weakness of legs. Patellar reflexes +1/4 b/l. Gross sensation intact. Course Administered Medications Discontinued Medications Gabapentin (Gabapentin 300 Mg Cap) 300 mg PO NOW STA Stop: 04/20/22 14:24 Last Admin: 04/20/22 15:45 Dose: 300 mg Documented By: SOL Acetaminophen (Ofirmev) 1,000 mg in 100 mls @ 400 mls/hr IV NOW STA Stop: 04/20/22 11:08 Last Infusion: 04/20/22 12:41 Dose: 0 mls/hr Documented By: Admin: 04/20/22 12:02 Dose: 400 mls/hr Documented By: BABATUNDE Ceftriaxone Sodium (Rocephin) 2,000 mg in 70 mls @ 140 mls/hr IV NOW STA Stop: 04/20/22 14:52 Last Infusion: 04/20/22 15:05 Dose: 0 mls/hr Documented By: Admin: 04/20/22 14:34 Dose: 140 mls/hr Documented By: BABATUNDE Lidocaine (Lidocaine 5% 1 Patch) 1 patch TD NOW STA Stop: 04/20/22 14:24 Last Admin: 04/20/22 14:34 Dose: 1 patch Documented By: BABATUNDE Morphine Sulfate (Morphine Sulfate 2 Mg/Ml Carp) 2 mg IV NOW STA Stop: 04/20/22 16:26 Last Admin: 04/20/22 17:07 Dose: 2 mg Documented By: OR Medical Decision Making Differential Diagnosis Differential diagnoses includes but is not limited to lumbar radiculopathy, mus ade strain, facture, cauda equina, mass, and disc herniation. Medical Records Attestation: I reviewed the patient's medical records. Home Medications Current Medication List: was personally reviewed by me Laboratory Data Attestation: I reviewed the patient's lab results. Result diagrams: 04/20/22 11:56 04/20/22 11:56 Lab Results 04/20/22 04/20/22 04/20/22 Range/Units 11:56 11:56 11:56 WBC 8.32 (4.8-10.8) K/ul RBC 4.34 (3.93-5.22) M/uL Hgb 11.9 L (12.0-16.0) g/dl Hct 37.1 (34.1-44.9) % MCV 85.5 (80.0-100.0) fL MCH 27.4 (25.0-34.0) pg MCHC 32.1 (32.0-36.0) g/dL RDW Std Deviation 43.1 (36.4-46.3) fL RDW Coeff of Derek 13.9 (11.5-14.5) % Plt Count 272 (130-400) K/uL MPV 10.4 (9.4-12.3) fL Immature Gran % (Auto) 0.2 % Neut % (Auto) 75.6 % Lymph % (Auto) 16.1 % [place] % (Auto) 7.9 % Eos % (Auto) 0.1 % Baso % (Auto) 0.1 % Neut # (Auto) 6.28 (1.4-6.5) K/uL Lymph # (Auto) 1.34 (1.2-3.4) K/uL [place] # (Auto) 0.66 (0.24-0.82) K/uL Eos # (Auto) 0.01 (0-0.50) K/uL Baso # (Auto) 0.01 (0-0.2) K/uL Immature Gran # (Auto) 0.02 (0.00-0.02) K/uL PT 31.0 H (9.0-12.0) Seconds INR 3.1 H (0.9-1.1) Sodium 139 (136-145) mmol/L Potassium 4.0 (3.5-5.1) mmol/L Chloride 105 (98-107) mmol/L Carbon Dioxide 27 (21-32) mmol/L Anion Gap 7 (3-11) BUN 24 H (6-23) mg/dl Creatinine 0.86 (0.6-1.2) mg/dl Est Cr Clr Drug Dosing 63.6 ml/min Est GFR ( Amer) 77.1 ml/min Est GFR (Non-Af Amer) 66.6 ml/min BUN/Creatinine Ratio 27.9 H (10-20) Glucose 89 (70-99(Fasting)) mg/dl Calcium 9.3 (8.5-10.1) mg/dl Magnesium 2.1 (1.7-2.4) mg/dl Total Bilirubin 0.6 (0.2-1.0) mg/dl AST 34 (13-39) U/L ALT 29 (7-52) U/L Alkaline Phosphatase 32 L (34-104) U/L Total Protein 6.8 (6.0-8.3) gm/dl Albumin 3.9 (3.4-5.0) gm/dl Globulin 2.9 (2.5-4.0) gm/dl Albumin/Globulin Ratio 1.3 (0.9-2) Lipase 28 (11-82) U/L Urine Color Urine Appearance (Clear) Urine pH (4.5-7.5) Ur Specific [place] (1.000-1.030) Urine Protein (Negative) Urine Glucose (UA) (Negative) Urine Ketones (Negative) Urine Blood (Negative) Urine Nitrite (Negative) Urine Bilirubin (Negative) Urine Urobilinogen (Negative) Ur Leukocyte Esterase (Negative) Urine WBC (Auto) (0-5) /hpf Urine RBC (Auto) (0-4) /hpf U Hyaline Cast (Auto) (0-5) /lpf U Epithel Cells (Auto) (0-5) /lpf Urine Bacteria (Auto) (Negative) SARS-CoV-2, RNA, NAAT (NEGATIVE) 04/20/22 04/20/22 Range/Units 13:40 17:05 WBC (4.8-10.8) K/ul RBC (3.93-5.22) M/uL Hgb (12.0-16.0) g/dl Hct (34.1-44.9) % MCV (80.0-100.0) fL MCH (25.0-34.0) pg MCHC (32.0-36.0) g/dL RDW Std Deviation (36.4-46.3) fL RDW Coeff of Derek (11.5-14.5) % Plt Count (130-400) K/uL MPV (9.4-12.3) fL Immature Gran % (Auto) % Neut % (Auto) % Lymph % (Auto) % [place] % (Auto) % Eos % (Auto) % Baso % (Auto) % Neut # (Auto) (1.4-6.5) K/uL Lymph # (Auto) (1.2-3.4) K/uL [place] # (Auto) (0.24-0.82) K/uL Eos # (Auto) (0-0.50) K/uL Baso # (Auto) (0-0.2) K/uL Immature Gran # (Auto) (0.00-0.02) K/uL PT (9.0-12.0) Seconds INR (0.9-1.1) Sodium (136-145) mmol/L Potassium (3.5-5.1) mmol/L Chloride (98-107) mmol/L Carbon Dioxide (21-32) mmol/L Anion Gap (3-11) BUN (6-23) mg/dl Creatinine (0.6-1.2) mg/dl Est Cr Clr Drug Dosing ml/min Est GFR ( Amer) ml/min Est GFR (Non-Af Amer) ml/min BUN/Creatinine Ratio (10-20) Glucose (70-99(Fasting)) mg/dl Calcium (8.5-10.1) mg/dl Magnesium (1.7-2.4) mg/dl Total Bilirubin (0.2-1.0) mg/dl AST (13-39) U/L ALT (7-52) U/L Alkaline Phosphatase (34-104) U/L Total Protein (6.0-8.3) gm/dl Albumin (3.4-5.0) gm/dl Globulin (2.5-4.0) gm/dl Albumin/Globulin Ratio (0.9-2) Lipase (11-82) U/L Urine Color Yellow Urine Appearance Clear (Clear) Urine pH 6.5 (4.5-7.5) Ur Specific [place] 1.014 (1.000-1.030) Urine Protein Negative (Negative) Urine Glucose (UA) Negative (Negative) Urine Ketones Negative (Negative) Urine Blood Negative (Negative) Urine Nitrite Negative (Negative) Urine Bilirubin Negative (Negative) Urine Urobilinogen Negative (Negative) Ur Leukocyte Esterase 1+ H (Negative) Urine WBC (Auto) 10-30 H (0-5) /hpf Urine RBC (Auto) 0-4 (0-4) /hpf U Hyaline Cast (Auto) 1-5 (0-5) /lpf U Epithel Cells (Auto) 0-5 (0-5) /lpf Urine Bacteria (Auto) 4+ H (Negative) SARS-CoV-2, RNA, NAAT NEGATIVE (NEGATIVE) Imaging Data Radiologist's Impression: Lumbar Spine CT 04/20/22 10:54 CT OF THE LUMBAR SPINE CLINICAL HISTORY: Lumbar spine pain following fall. COMPARISON STUDY: CT of the abdomen and pelvis April 14, 2022. TECHNIQUE: Helical axial images of the lumbar spine were obtained. Sagittal and coronal reconstructions were viewed. Automated exposure control was utilized for the study. A dose lowering technique was utilized adhering to the principles of ALARA. FINDINGS: For purposes of numbering on this exam, the L5-S1 disc space is assigned to axial image 207 of 355. There is a transitional vertebra at the lumbosacral junction which is designated as S1 for purposes of numbering on this exam. This is partially lumbarized. When utilizing this numbering scheme, there is a moderate compression deformity of the superior plate of L1. This is unchanged since abdominal CT of April 14, 2022 and likely chronic. No acute lum bar spine fracture is noted. There is a lucency through the right lateral osteophytes along the inferior endplate of L1 which is also unchanged since prior CT. No acute lumbar spine fracture is noted. Mild levoscoliosis of the lumbar spine is present. Central canal and neural foramen are suboptimally assessed by CT. Severe multilevel facet arthrosis is present. There is moderate multilevel degenerative disc disease. IMPRESSION: 1. No acute lumbar spine fracture or subluxation. 2. Lucency through right lateral osteophytes along the inferior endplate of L1. This was present on abdominal CT of April 14, 2022. This suggests a subacute to chronic nondisplaced fracture. 3. Old L1 compression deformity. 4. Severe multilevel facet arthrosis and moderate degenerative disc disease within the lumbar spine. 5. Mild levoscoliosis of the lumbar spine. 6. Transitional vertebra at the lumbosacral junction. Please see above numbering scheme of the lumbar spine. ACT 112: Negative or not required by law. Electronically signed by: Javier Durham M.D. 04/20/2022 11:53 AM Ribs w/Chest X-Ray 04/20/22 10:54 XR ribs RT min 2V w [id number] CLINICAL HISTORY: right posterior rib pain COMPARISON: Chest radiograph May 12, 2021. FINDINGS: There is no pneumothorax or pleural effusion. No acute right rib fractures are identified. There are median sternotomy wires, dual lead left subclavian pacemaker and a prosthetic aortic valve. No consolidation is identif ied. Mild reticulonodular interstitial thickening is similar to prior exam. IMPRESSION: No pneumothorax. No acute rib fractures. ACT 112: Negative or not required by law. Electronically signed by: Javier Durham M.D. 04/20/2022 11:32 AM Renal Ultrasound 04/20/22 14:40 RENAL ULTRASOUND CLINICAL HISTORY: right flank pain, UTI COMPARISON STUDY: CT of the abdomen and pelvis April 14, 2022. TECHNIQUE: Sonography of the kidneys and the urinary bladder was performed. FINDINGS: There is no hydronephrosis. The right kidney measures 10.1 x 4.7 x 5.2 cm and the left kidney measures 10.7 x 4.7 x 6 cm. 7 mm echogenic cortical lesion within the inferior pole of the right kidney corresponds to a fat- containing lesion by CT. This represents an angiomyolipoma. No urinary calculi are identified by sonography. There is mild renal cortical thinning. Both ureteral jets were identified. Bladder is suboptimally assessed given underdistention. IMPRESSION: No hydronephrosis. No renal abscess. ACT 112: Negative or not required by law. Electronically signed by: Javier Durham M.D. 04/20/2022 3:31 PM MDM Narrative An order was placed for continuous cardiac monitoring. The monitor shows a rate of _66__ with _normal sinus_ rhythm. This is a 76-year-old female presents emergency department with concern for back pain following a fall 2 days ago. Patient does have remote history of prior lumbar spine injury. Labs drawn and sent as a precaution given advanced age and comorbidities and patient sent for CT of the lumbar spine. Patient was able to provide urine specimen here which showed possible evolving UTI, she was covered with IV antibiotics, and sent for renal ultrasound as a precaution. Patient was given cautious and careful medications to prevent any adverse reaction given advanced age, current medications, and comorbidities. Patient did not feel safe going home as she lives alone and at this point feels she would be unable to safely get to the bathroom, get dressed, or get something to eat. I did discuss option of inpatient rehab with case management however patient would need an overnight stay in the hospital for PT/OT evaluation additionally. Case discussed with hospitalist for additional evaluation and management. At this time I do not suspect occult cauda equina, epidural abscess/hematoma, acute discitis, pyelonephritis, renal colic, or other significant occult traumatic injury. Impression & Plan Back pain, Fall, Acute UTI (urinary tract infection) Discharge Plan Visit Data Chief Complaint: Back Injury/Pain ED Provider: Lola Gee Discharge Problem: Back pain, Fall, Acute UTI (urinary tract infection) Patient Disposition: Being Evaluated by Hospitalist Forms Stand Alone Forms: My [facility] Prescriptions Prescriptions: No Action fenofibrate nanocrystallized 48 mg Tablet 48 mg PO QPM Rx Instructions: TAKE WITH EVENING MEAL multivitamin [Multiple Vitamins] Tablet 1 tab PO DAILY furosemide 20 mg Tablet 20 mg PO DAILY prednisone 10 mg tablet 10 mg PO UD Rx Instructions: follow package instruction ordered 04/16/22 baclofen 10 mg tablet 10 mg PO HS anastrozole 1 mg tablet 1 mg PO QAM alendronate 70 mg tablet 70 mg PO Tu@0900 Rx Instructions: ordered weekly but hasnt started warfarin 1 mg tablet 1 mg PO MOFR@1600 acetaminophen 500 mg Tablet 1,000 mg PO Q6H PRN (Reason: Pain) warfarin 1 mg tablet 4 mg PO SuTuWeThSa@1600 metoprolol tartrate 25 mg tablet 25 mg PO BID potassium chloride 20 mEq tablet extended release 20 meq PO DAILY gabapentin 300 mg capsule 300 mg PO TID lisinopril 2.5 mg Tablet 2.5 mg PO QAM Qty: 30 0RF aspirin [Children's Aspirin] 81 mg Tablet,Chewable 81 mg PO DAILY Qty: 30 0RF pantoprazole [Protonix] 40 mg tablet,delayed release (DR/EC) 40 mg PO DAILY 28 Days Qty: 28 0RF oxycodone 5 mg tablet 5 mg PO Q6H PRN (Reason: pain) Qty: 15 0RF ondansetron HCl 4 mg tablet 4 mg PO Q6H PRN (Reason: nausea and vomiting) Qty: 20 0RF Referrals Referrals: Prashant Peterson MD [Primary Care Provider] -
[2022-04-20 14:15] LABS: Appearance Urine Clear (Clear); Bacteria Urine Automated 4+ (Negative); Bilirubin Urine Negative (Negative); Blood Urine Negative (Negative); Color Urine Yellow; Epithelial Cell Urine Auto 0-5 /lpf (0-5); Glucose Urine UA Negative (Negative); Ketones Urine Negative (Negative); Leukocyte Esterase Urine 1+ (Negative); Nitrite Urine Negative (Negative); Protein Urine Negative (Negative); RBC Urine Automated 0-4 /hpf (0-4); Specific Gravity Urine 1.014 (1.000-1.030); Urobilinogen Urine Negative (Negative); pH Urine 6.5 (4.5-7.5)
[2022-04-20] MEDS ORDERED: GABAPENTIN 300 MG CAP PO STA (14:23)
[2022-04-20] MEDS ORDERED: LIDOCAINE 5% 1 PATCH TD STA (14:23)
[2022-04-20] MEDS ORDERED: cefTRIAXone SODIUM 2,000 MG/70 ML BAG IV STA (14:23)
--- NOTE | 2022-04-20 15:32 | Ultrasound Report ---
RENAL ULTRASOUND CLINICAL HISTORY: right flank pain, UTI COMPARISON STUDY: CT of the abdomen and pelvis April 14, 2022. TECHNIQUE: Sonography of the kidneys and the urinary bladder was performed. FINDINGS: There is no hydronephrosis. The right kidney measures 10.1 x 4.7 x 5.2 cm and the left kidn ey measures 10.7 x 4.7 x 6 cm. 7 mm echogenic cortical lesion within the inferior pole of the right k idney corresponds to a fat-containing lesion by CT. This represents an angiomyolipoma. No urinary claudia culi are identified by sonography. There is mild renal cortical thinning. Both ureteral jets were kiko ntified. Bladder is suboptimally assessed given underdistention. IMPRESSION: No hydronephrosis. No renal abscess. ACT 112: Negative or not required by law. Electronically signed by: Javier Durham M.D. 04/20/2022 3:31 PM
[2022-04-20] MEDS ORDERED: MoRPHine SULFATE 2 MG/ML CARP IV STA (16:25)
--- NOTE | 2022-04-20 16:59 | History & Physical Report ---
Date of Service April 20, 2022 Assessment & Plan (1) Back pain: Plan: Although there is no overt neurologic deficit, pain is progressive and she is now unable to walk because of the severity. Will plan for MRI L spine as long as PM is truly compatible. For now trial Toradol with some low dose valium for muscle relaxation along with ICE to area as often as tolerated (noted coumadin use and h/o gastric bypass). Lidocaine patch in place. States oxy didn't help, morphine not controlling pain effectively in the ER today, APAP at home ok but not effective, Baclofen was somewhat helpful at night. Pain is worse with sitting up and standing. She cannot ambulate or move around the bed well at all. She reports increased pain with urination and appears to be developing a UTI just in the past 1-2 days. DDX includes but not limited to UTI, pyelonephritis (no evidence of this on imaging and no fevers or chills present), musculoskeletal pain. She did report some streaks of blood when wiping over the past few days. There is no evidence of microscopic hematuria on UA today. Will obtain urine spot protein to ensure no proteinuria. UA consistent with infection. With h/o malignancy, there are no weight changes or other B symptoms such as night sweats, etc. Recently evaluated at [facility] for breast cancer and appears clear of cancer at this time. Without fevers, chills or focal neurologic deficits, epidural abscess/osteomyelitis/discitis is also less likely but is in the differential. Cont with MRI if able, supportive care with ICE, pain meds and PT/OT evaluation in the morning. Stop PPI started just a few days ago for presumed GI illness that is not present. Hold Baclofen for now Stop prednisone taper to avoid additional unwanted side effects. (2) UTI (urinary tract infection): Plan: Symptoms present with +LE, +bacteria and +WBC in urine. Rocephin pending culture results and clinical improvement. (3) Paroxysmal atrial fibrillation: Plan: chronic, coumadin, rate controlled with Lopressor. (4) S/P CABG x 1: (5) S/P AVR (aortic valve replacement): Plan: 2003-mechanical aortic valve replacement, single vessel cardiac bypass, dual chamber AV pacemaker for CHB Mar 2020-presented to [facility] with left chest pain. Underwent a right and left heart cath revealing 80% prox to mid LAD stenosis and no obvious bypass graft visualized. Aortic root injection with possible dilated ascending aorta. Echo showed severe stenosis of the mechanical aortic valve with mild AI. Transferred to [facility] for redo AVR and CABG. 03/22/2020: at [facility] (Dr. Aldo Ruano) underwent a reoperative aortic valve replacement using a 23 mm Ortega Traore magna ease pericardial bioprosthesis and a CABG x 1 with a pedicled left internal mammary artery to the LAD. Over the next several days pacing wires were removed. She still had her permanent pacemaker in place which was interrogated and functioning appropriately. Coumadin was still indicated because of the atrial fibrillation. (6) HTN (hypertension): Plan: Situational elevation in BP today 2/2 uncontrolled pain. Cont lisinopril per outpatient regimen. Daily BMP with concomitant use of Toradol . (7) H/O malignant neoplasm of breast: Plan: Recently seen by Dr. Katz, [facility], in December 2021 and there is no evidence of recurrence or metastatic disease. s/p right breast partial mastectomy 09/05/21 for R breast stage I, T1N0M0, ER/AL positive tumor, now on anastrazole therapy daily. (8) DVT prophylaxis: Plan: warfain Full Code per my discussion with her on admission. Dispo-to floor. I did speak with her daughter Clementina who is a SENIOR HADOOP DEVELOPER at [facility] and used to work at [employer]. She agreed with the assessment and plan and all questions were answered. I also ensured that her son, who was at bedside, was fine with the plan and all questions were answered to his satisfaction. Alanna Thomas DO [facility] Hospitalist History of Present Illness Chief Complaint: low back pain Primary Care Provider: Prashant Peterson MD 76 yo F presents with persistent back/flank pain. She presented to the ER on 04/15 reporting this had been ongoing for 2 weeks. She has been taking OTC meds at home without relief (Tylenol) and has noticed a darkening to her urine. She denies any nas hematuria but did report some blood present when she wiped on the tissue. She has chronic back pain but this is different and worse in intensity. Pain is worse with lying flat and sitting up and standing. Doesn't radiate down her legs; there is no issue with numbness or weakness in the legs. She admits to frequent falls as home, moving heavy furniture and lifting/playing with her grandchildren all which may have been contributing to her symptoms. CT was performed at that time revealing no evidence of kidney stone and there was a lipasemia noted. She reports she was diagnosed with acute pancreatitis. She was discharged with oxycodone, protonix and zofran PRN. Her pain didn't improve much and she was then seen in the clinic by her PCP and was placed on a prednisone tape just a few days ago. Repeat lipase check at that time was within normal range and she denies ever having nausea, vomiting. Just today she developed urinary urgency and notices that her right posterior flank is painful with urination. She did report a fall at [employer] yesterday, stumbling backwards over a box that was on the floor. Since that time she hasn't been able to walk or stand. Pain after morphine is being rated a 7/10. She denies stool inc ontinence, weight loss, night sweats, and is eating well. No chest pain or shortness of breath is present. Ice has been helping her. Extensive review of outpatient records was performed and I spoke with her daughter by phone who is a nurse practitioner at [facility] and discussed the case with treatment options with her at length. She reports the pacemaker was changed and should now be MRI compatible, however, she isn't sure about the leads in the PM being MR compatible. Allergies Allergy/AdvReac Type Severity Reaction Status Date / Time ALL STATIN DRUGS AdvReac BILATERAL Uncoded 04/20/22 17:00 LEG WEAKNESS Home Medications Medication Instructions Recorded Confirmed Type fenofibrate nanocrystallized 48 mg 48 mg PO QPM 10/08/18 04/20/22 History tablet furosemide 20 mg tablet 20 mg PO DAILY 10/08/18 04/20/22 History multivitamin (Multiple Vitamins 1 tab PO DAILY 10/08/18 04/20/22 History tablet) acetaminophen 500 mg tablet 1,000 mg PO Q6H PRN Pain 05/12/21 04/20/22 History gabapentin 300 mg capsule 300 mg PO TID 05/12/21 04/20/22 History metoprolol tartrate 25 mg tablet 25 mg PO BID 05/12/21 04/20/22 History potassium chloride 20 mEq 20 meq PO DAILY 05/12/21 04/20/22 History tablet,extended release warfarin 1 mg tablet 4 mg PO [id number]@1600 05/12/21 04/20/22 History aspirin 81 mg chewable tablet 81 mg PO DAILY #30 tabs 05/15/21 04/20/22 Rx ([facility]in) lisinopril 2.5 mg tablet 2.5 mg PO QAM #30 tabs 05/15/21 04/20/22 Rx ondansetron HCl 4 mg tablet 4 mg PO Q6H PRN nausea and 04/14/22 04/20/22 Rx vomiting #20 tabs oxycodone 5 mg tablet 5 mg PO Q6H PRN pain #15 tabs 04/14/22 04/20/22 Rx pantoprazole 40 mg tablet,delayed 40 mg PO DAILY 4 weeks #28 tabs 04/14/22 04/20/22 Rx release (Protonix) alendronate 70 mg tablet 70 mg PO Tu@0900 04/20/22 04/20/22 History anastrozole 1 mg tablet 1 mg PO QAM 04/20/22 04/20/22 History baclofen 10 mg tablet 10 mg PO HS 04/20/22 04/20/22 History prednisone 10 mg tablet 10 mg PO UD 04/20/22 04/20/22 History warfarin 1 mg tablet 1 mg PO MOFR@1600 04/20/22 04/20/22 History Past Med/Surg History Medical History Aortic aneurysm Compression fracture H/O malignant neoplasm of breast HTN (hypertension) Pacemaker Surgical History H/O gastric bypass H/O hernia repair H/O: History of appendectomy Hx of cholecystectomy Mechanical heart valve present Family History Other Family history non-contributory Social History Smoking Status: Never smoker Second Hand Exposure: Yes (at apartment complex); Hx Alcohol Use: No Hx Substance Use: No Preferred Language: Burmese Communication Ability: Effective Visual Impairment: No Limitations Hearing Ability: Normal Boat Dispatcher Required: No Beliefs That Will Affect Care: None marital status: Current Living Situation: Alone current occupational status: retired Feels Safe at Home: Yes Assistive Devices: Glasses Review of Systems Review of Systems: All systems were reviewed and negative except as indicated above. Physical Exam Physical Exam: CONSTITUTIONAL: WNWD, vitals as above, generally well- appearing EYES: PERRL, normal conjunctivae, no scleral icterus ENT: external ear and nose normal, MMM NECK: trachea midline RESPIRATORY: clear to auscultation bilaterally, no crackles, rales or wheezes, normal respiratory effort CARDIOVASCULAR: regular rate and rhythm, 3/6 RACHEL heard , no gallops or rubs, no JVD, no peripheral edema CHEST: inspection of chest was normal GASTROINTESTINAL: soft, nontender, ND, +CVA tenderness on the right, no guarding MUSCULOSKELETAL: strength 5/5 throughout, head is normocephalic and atraumatic, she has limited ability to sit up on the side of the bed without pain and cannot stand or lie flat. She has tenderness to palpation of the lower right back in the R CVA/lower R paraspinal area. There is pain at the SI joint and piriformis pain to palpation on the right gluteus. A lidocaine patch is in place. SKIN: warm and dry NEUROLOGIC: patellar DTRs 2+ bilat. PERRL, EOMI, no facial palsy, no dysarthria. CN 2-12 grossly intact, no sensory deficit, normal cognition, normal speech, no tremor PSYCHIATRIC: alert cooperative and oriented to person, place and time. Euthymic mood, makes good eye contact, language grossly intact, recent and remote memory grossly intact. Results & Data Results & Data ([facility]) Vital Signs (Past 12 Hours) Vital Signs Temp Pulse Pulse Resp BP BP Pulse Ox 04/20/22 15:45 60 20 151/71 H 97 04/20/22 13:14 60 18 121/69 100 04/20/22 12:00 136/76 98 04/20/22 11:00 161/101 H 97 04/20/22 10:30 138/79 98 04/20/22 10:06 37.0 C 71 19 167/82 H 99 O2 Del Method 04/20/22 15:45 Room Air 04/20/22 13:14 Room Air 04/20/22 12:00 Room Air 04/20/22 11:00 Room Air 04/20/22 10:30 Room Air 04/20/22 10:06 Room Air Laboratory Results Short CBC 04/20/22 Range/Units 11:56 WBC 8.32 (4.8-10.8) K/ul Hgb 11.9 L (12.0-16.0) g/dl Hct 37.1 (34.1-44.9) % Plt Count 272 (130-400) K/uL BMP 04/20/22 11:56 Sodium 139 Potassium 4.0 Chloride 105 Carbon Dioxide 27 BUN 24 H Creatinine 0.86 Glucose 89 Calcium 9.3 Liver Function 04/20/22 Range/Units 11:56 Total Bilirubin 0.6 (0.2-1.0) mg/dl AST 34 (13-39) U/L ALT 29 (7-52) U/L Alkaline Phosphatase 32 L (34-104) U/L Albumin 3.9 (3.4-5.0) gm/dl Urine 04/20/22 Range/Units 13:40 Urine Color Yellow Urine Appearance Clear (Clear) Urine pH 6.5 (4.5-7.5) Ur Specific [place] 1.014 (1.000-1.030) Urine Protein Negative (Negative) Urine Glucose (UA) Negative (Negative) Diagnostic Findings Lumbar Spine CT 04/20/22 10:54 CT OF THE LUMBAR SPINE CLINICAL HISTORY: Lumbar spine pain following fall. COMPARISON STUDY: CT of the abdomen and pelvis April 14, 2022. TECHNIQUE: Helical axial images of the lumbar spine were obtained. Sagittal and coronal reconstructions were viewed. Automated exposure control was utilized for the study. A dose lowering technique was utilized adhering to the principles of ALARA. FINDINGS: For purposes of numbering on this exam, the L5-S1 disc space is assigned to axial image 207 of 355. There is a transitional vertebra at the lumbosacral junction which is designated as S1 for purposes of numbering on this exam. This is partially lumbarized. When utilizing this numbering scheme, there is a moderate compression deformity of the superior plate of L1. This is unchanged since abdominal CT of April 14, 2022 and likely chronic. No acute lumbar spine fracture is noted. There is a lucency through the right lateral osteophytes along the inferior endplate of L1 which is also unchanged since prior CT. No acute lumbar spine fracture is noted. Mild levoscoliosis of the lumbar spine is present. Central canal and neural foramen are suboptimally assessed by CT. Severe multilevel facet arthrosis is present. There is moderate multilevel degenerative disc disease. IMPRESSION: 1. No acute lumbar spine fracture or subluxation. 2. Lucency through right lateral osteophytes along the inferior endplate of L1. This was present on abdominal CT of April 14, 2022. This suggests a subacute to chronic nondisplaced fracture. 3. Old L1 compression deformity. 4. Severe multilevel facet arthrosis and moderate degenerative disc disease within the lumbar spine. 5. Mild levoscoliosis of the lumbar spine. 6. Transitional vertebra at the lumbosacral junction. Please see above numbering scheme of the lumbar spine. ACT 112: Negative or not required by law. Electronically signed by: Javier Durham M.D. 04/20/2022 11:53 AM Ribs w/Chest X-Ray 04/20/22 10:54 XR ribs RT min 2V w [id number] CLINICAL HISTORY: right posterior rib pain COMPARISON: Chest radiograph May 12, 2021. FINDINGS: There is no pneumothorax or pleural effusion. No acute right rib fractures are identified. There are median sternotomy wires, dual lead left subclavian pacemaker and a prosthetic aortic valve. No consolidation is identified. Mild reticulonodular interstitial thickening is similar to prior exam. IMPRESSION: No pneumothorax. No acute rib fractures. ACT 112: Negative or not required by law. Electronically signed by: Javier Durham M.D. 04/20/2022 11:32 AM Renal Ultrasound 04/20/22 14:40 RENAL ULTRASOUND CLINICAL HISTORY: right flank pain, UTI COMPARISON STUDY: CT of the abdomen and pelvis April 14, 2022. TECHNIQUE: Sonography of the kidneys and the urinary bladder was performed. FINDINGS: There is no hydronephrosis. The right kidney measures 10.1 x 4.7 x 5.2 cm and the left kidney measures 10.7 x 4.7 x 6 cm. 7 mm echogenic cortical lesion within the inferior pole of the right kidney corresponds to a fat- containing lesion by CT. This represents an angiomyolipoma. No urinary calculi are identified by sonography. There is mild renal cortical thinning. Both ureteral jets were identified. Bladder is suboptimally assessed given underdistention. IMPRESSION: No hydronephrosis. No renal abscess. ACT 112: Negative or not required by law. Electronically signed by: Javier Durham M.D. 04/20/2022 3:31 PM Code Status & VTE Plan VTE Prophylaxis Plan VTE Prophylaxis will be ordered: Yes (1) Back pain Back pain laterality: bilateral Back pain location: low back pain Chronicity: acute Sciatica presence: unspecified whether sciatica present Qualified Code(s): M54.50 - Low back pain, unspecified
[2022-04-20 17:32] LABS: INR 3.1 (0.9-1.1)
[2022-04-20] MEDS ORDERED: KETOROLAC TROMETHAMINE 15 MG/ML VIAL IV ONE (17:59)
[2022-04-20] MEDS ORDERED: ACETAMINOPHEN 325 MG TAB PO PRN (19:37)
[2022-04-20] MEDS ORDERED: diazePAM 2 MG TABLET PO ONE (19:37)
[2022-04-20] MEDS ORDERED: POLYETHYLENE (MIRALAX) 17 GM PACK PO PRN (19:37)
[2022-04-20] MEDS: METOPROLOL TARTRATE 25 MG TAB PO SCH (21:36)
[2022-04-20] MEDS: GABAPENTIN 300 MG CAP PO SCH (21:36)
[2022-04-21] MEDS: KETOROLAC TROMETHAMINE 15 MG/ML VIAL IV SCH ×2 (00:35→06:18)
[2022-04-21] MEDS ORDERED: diazePAM 2 MG TABLET PO SCH (08:00)
[2022-04-21 08:07] LABS: Hemoglobin 12.1 g/dl (12.0-16.0); Mean Corpuscular Hemoglobin 27.2 pg (25.0-34.0); Mean Corpuscular Hgb Conc 31.8 g/dL (32.0-36.0); Mean Corpuscular Volume 85.4 fL (80.0-100.0); Mean Platelet Volume 10.5 fL (9.4-12.3); Platelet Count 262 K/uL (130-400); RDW Coefficient of Variation 14.3 % (11.5-14.5); Red Blood Count 4.45 M/uL (3.93-5.22); White Blood Count 4.27 K/ul (4.8-10.8)
[2022-04-21 08:38] LABS: BUN Creatinine Ratio 26.8 (10-20); Calcium 8.9 mg/dl (8.5-10.1); Creatinine Clr Calc Pharmacy 48.8 ml/min; Est GFR (Non-African American) 48.4 ml/min; Potassium 4.3 mmol/L (3.5-5.1)
[2022-04-21 08:50] LABS: INR 2.8 (0.9-1.1); Prothrombin Time 28.3 Seconds (9.0-12.0)
[2022-04-21] MEDS ORDERED: FUROSEMIDE 20 MG TAB PO SCH (09:00)
[2022-04-21] MEDS ORDERED: POTASSIUM CHLORIDE CRTAB 20 MEQ TABCR PO SCH (09:00)
[2022-04-21] MEDS ORDERED: lisinopril 2.5 MG TAB PO SCH (09:00)
[2022-04-21] MEDS ORDERED: ALENDRONATE SODIUM 70 MG TAB PO SCH (09:00)
[2022-04-21] MEDS: METOPROLOL TARTRATE 25 MG TAB PO SCH ×2 (09:33→21:43)
[2022-04-21] MEDS: ASPIRIN 81 MG CHEW PO SCH (09:34)
[2022-04-21] MEDS: ANASTROZOLE 1 MG TAB PO SCH (09:35)
--- NOTE | 2022-04-21 10:22 | Hospitalist Progress Note ---
Date of Service April 21, 2022 Assessment & Plan (1) Back pain: Plan: This is a 76-year-old female who has a significant past medical history of CAD status post CABG x1, history of mechanical aortic valve replacement with redo and now bioprosthetic valve in place, PAF on warfarin therapy, history of breast cancer, HTN, osteoporosis who presented to ER secondary to back pain. Initially seen in ER on 04/15 after reporting back pain for [address] weeks[address] At that time CT was performed with no evidence of kidney stone and she did have elevated lipase. She was diagnosed with acute pancreatitis. She was discharged with a PPI and pain medication. She was seen by PCP and placed on prednisone taper a few days prior to current admission due to continued back pain. Her repeat lipase at that time was normal. Lumbar Spine CT: IMPRESSION: 1. No acute lumbar spine fracture or subluxation. 2. Lucency through right lateral osteophytes along the inferior endplate of L1. This was present on abdominal CT of April 14, 2022. This suggests a subacute to chronic nondisplaced fracture. 3. Old L1 compression deformity. 4. Severe multilevel facet arthrosis and moderate degenerative disc disease within the lumbar spine. 5. Mild levoscoliosis of the lumbar spine. 6. Transitional vertebra at the lumbosacral junction. Please see above numbering scheme of the lumbar spine. Lumbar Back Pain pt admitted to med/surg currently undergoing MRI pain improved with valium and toradol continue ICE QID, Lidocaine patch, will schedule APAP PT/OT consults placed plan to return home will consult orthotics for LSO brace for more support carlos WALKER, remains afebrile, wbc wnl prednisone taper and PPI stopped on admission Elevated BUN bun mildly elevated at 30 cr when from 0.8 to 1.12 she did receive toradol in ED yesterday will hold lasix , KCL and lisinopril to be precautionary also encourage fluids monitor bmp (2) UTI (urinary tract infection): Plan: Symptoms present with +LE, +bacteria and +WBC in urine on admission Continue Rocephin, Day 2 Urine culture still pending (3) Paroxysmal atrial fibrillation: Plan: rate and rhythm controlled with metoprolol continue warfarin (4) S/P CABG x 1: (5) S/P AVR (aortic valve replacement): Plan: 2003-mechanical aortic valve replacement, single vessel cardiac bypass, dual chamber AV pacemaker for CHB Mar 2020-presented to [facility] with left chest pain. Underwent a right and left heart cath revealing 80% prox to mid LAD stenosis and no obvious bypass graft visualized. Aortic root injection with possible dilated ascending aorta. Echo showed severe stenosis of the mechanical aortic valve with mild AI. [place] [facility] [place]. [place]/22/[place]: [place] [facility] [place] Ald[place]ano[place] underwent a reoperative aortic valve replacemen t using a 23 mm Ortega Traore magna ease pericardial bioprosthesis and a CABG x 1 with a pedicled left internal mammary artery to the LAD. Over the next several days pacing wires were removed. She still had her permanent pacemaker in place which was interrogated and functioning appropriately. Coumadin was still indicated because of the atrial fibrillation. (6) HTN (hypertension): Plan: BP controlled today 113/71 hold lisinopril for now (7) H/O malignant neoplasm of breast: Plan: Recently seen by Dr. Katz, [facility], in December 2021 and there is no evidence of recurrence or metastatic disease. s/p right breast partial mastectomy 09/05/21 for R breast stage I, T1N0M0, ER/MO positive tumor, now on anastrazole therapy daily. (8) DVT prophylaxis: Plan: warfain, INR 2.8 today, daily INR Full Code per my discussion with her on admission. Dispo-to floor. Pt was seen and examined in collaboration with Dr. [place], please see addendum Pt daughter Clementina is a FISHER[employer] MANAG[employer] BIOLOGIST at [facility] and use to work at [employer]. Admission and Anticipated Discharge Date Admission Date: April 20, 2022 Supervising Physician Co-Signing Physician Notes Patient seen and examined independently. Agree with assessment and plan of Kavya Sung PA-C. Patient was comfortably sitting up on a chair; not in any acute distress. She complains of back pain; no radiation down her thigh, no weakness/numbness in her leg. On examination; she has right-sided paraspinal muscle tenderness. No midline tenderness. MRI reviewed; no acute findings; mild anterior wedging at L1 consistent with old compression deformity. Mild paravertebral edema along the anterior aspect of L1 vertebral body likely corresponding to subacute nondisplaced anterior aspect to fight fracture. Her physical examination is consistent with her MRI finding with right para spinal muscle tenderness. Plan is to consult orthotics for the lumbar brace. Awaiting PT/OT assessment. Her creatinine and BUN slightly elevated from her labs yesterday. We will hold off Toradol, Lasix and spironolactone. BMP in a.m. Subjective Patient was seen and examined in room 384-2. Follow-up right-sided low back pain. She is sitting up in bedside chair eating breakfast. She feels much improved from yesterday. She continues to have right-sided low back pain without radiation. Pain is currently a 3 out of 10. Is made worse with standing and movement. She was able to get out of bed this morning with minimal discomfort. She tolerated her breakfast. Currently she does feel nauseated. She denies fever, chills, sweats, lightheadedness, dizziness, chest pain, shortness of breath, abdominal pain. She denies dysuria, increased urgency or frequency with urination. She states she lives by herself in the [facility] which is an apartment complex. She has a 1 floor set up and is on the fifth floor. She states prior to having back pain she actually you normally takes the steps instead of the elevator. Review of Systems Review of Systems: All systems reviewed & are unremarkable except as noted in HPI & below Physical Exam Physical Exam: Gen: WD/WN, NAD, A&O x3, sitting in bedside chair HEENT: Normocephalic, atraumatic, conjunctivae moist, sclerae anicteric, mucous membranes moist. Lung: Clear to Auscultation bilaterally, no wheezes/rales/rhonchi Heart: Regular rate, regular rhythm, 2/6 RACHEL noted RUSB, murmurs, rubs, or gallops Abdomen: Soft, NT, ND +BS x 4 Extremities: No edema, pain to palpation on right lower paraspinal musculature Skin: Warm, no rash, negative turgor. Results & Data Results & Data ([facility]) Vital Signs (Past 12 Hours) Vital Signs Temp Pulse Resp BP Pulse Ox O2 Del Method 04/21/22 07:11 36.7 C 64 18 113/71 97 Room Air Laboratory Results Short CBC 04/20/22 04/21/22 Range/Units 11:56 07:27 WBC 8.32 4.27 L (4.8-10.8) K/ul Hgb 11.9 L 12.1 (12.0-16.0) g/dl Hct 37.1 38.0 (34.1-44.9) % Plt Count 272 262 (130-400) K/uL BMP 04/20/22 04/21/22 11:56 07:27 Sodium 139 138 Potassium 4.0 4.3 Chloride 105 103 Carbon Dioxide 27 30 BUN 24 H 30 H Creatinine 0.86 1.12 Glucose 89 81 Calcium 9.3 8.9 Liver Function 04/20/22 Range/Units 11:56 Total Bilirubin 0.6 (0.2-1.0) mg/dl AST 34 (13-39) U/L ALT 29 (7-52) U/L Alkaline Phosphatase 32 L (34-104) U/L Albumin 3.9 (3.4-5.0) gm/dl Urine 04/20/22 Range/Units 13:40 Urine Color Yellow Urine Appearance Clear (Clear) Urine pH 6.5 (4.5-7.5) Ur Specific [place] 1.014 (1.000-1.030) Urine Protein Negative (Negative) Urine Glucose (UA) Negative (Negative) Medications Administered Current Inpatient Medications Acetaminophen (Acetaminophen 325 Mg Tab) 650 mg PO Q4H PRN PRN Reason: Pain or Fever Stop: 05/20/22 19:36 Acetaminophen (Acetaminophen 325 Mg Tab) 650 mg PO QID [facility] Stop: 05/21/22 12:59 Alendronate Sodium (Alendronate Sodium 70 Mg Tab) 70 mg PO Tu@0900 CLAUDIA Stop: 05/21/22 08:59 Last Admin: 04/21/22 09:35 Dose: 70 mg Anastrozole (Anastrozole 1 Mg Tab) 1 mg PO QAM CLAUDIA Stop: 05/21/22 08:59 Last Admin: 04/21/22 09:35 Dose: 1 mg Aspirin (Aspirin 81 Mg Chew) 81 mg PO DAILY CLAUDIA Stop: 05/21/22 08:59 Last Admin: 04/21/22 09:34 Dose: 81 mg Diazepam (Diazepam 2 Mg Tablet) 2 mg PO ONCE CLAUDIA Stop: 05/21/22 07:59 Diazepam (Diazepam 2 Mg Tablet) 2 mg PO BID PRN PRN Reason: muscle relaxant/backpain Stop: 05/21/22 10:22 Furosemide (Furosemide 20 Mg Tab) 20 mg PO DAILY CLAUDIA Stop: 05/21/22 08:59 Last Admin: 04/21/22 09:34 Dose: 20 mg Gabapentin (Gabapentin 300 Mg Cap) 300 mg PO TID [facility] Stop: 05/20/22 20:59 Last Admin: 04/20/22 21:36 Dose: 300 mg Ceftriaxone Sodium 2,000 mg/ (Dextrose) 70 mls @ 100 mls/hr IV Q24H [facility]; Protocol Stop: 04/26/22 13:59 Lisinopril (Lisinopril 2.5 Mg Tab) 2.5 mg PO QAM [facility] Stop: 05/21/22 08:59 Last Admin: 04/21/22 09:34 Dose: 2.5 mg Metoprolol Tartrate (Metoprolol Tartrate 25 Mg Tab) 25 mg PO BID [facility] Stop: 05/20/22 20:59 Last Admin: 04/21/22 09:33 Dose: 25 mg Miscellaneous (Remove Lidoderm Patch) 1 each N/A DAILY@2100 [facility] Stop: 05/20/22 20:59 Last Admin: 04/20/22 21:32 Dose: 1 each Polyethylene Glycol (Polyethylene (Miralax) 17 Gm Pack) 17 gm PO DAILY PRN PRN Reason: Constipation Stop: 05/20/22 19:36 Potassium Chloride (Potassium Chloride Crtab 20 Meq Tabcr) 20 meq PO DAILY [facility] Stop: 05/21/22 08:59 Last Admin: 04/21/22 09:35 Dose: 20 meq Warfarin Sodium (Warfarin Sod 2 Mg Tab) 2 mg PO MOFR@1600 [facility] Stop: 05/24/22 15:59 Warfarin Sodium (Warfarin Sod 4 Mg Tab) 4 mg PO SuTuWeThSa@1600 [facility] Stop: 05/21/22 15:59 (1) Back pain Back pain laterality: bilateral Back pain location: low back pain Chronicity: acute Sciatica presence: unspecified whether sciatica present Qualified Code(s): M54.50 - Low back pain, unspecified
[2022-04-21] MEDS ORDERED: GADOBUTROL 65ML VIAL IV ONE (10:46)
[2022-04-21] MEDS: GABAPENTIN 300 MG CAP PO SCH ×3 (11:04→21:43)
--- NOTE | 2022-04-21 11:38 | Magnetic Resonance Report ---
LUMBAR SPINE MRI WITH AND WITHOUT CONTRAST HISTORY: progressive back pain, h/o breast ca TECHNIQUE: Multiplanar multisequence MRI of the lumbar spine was performed both before and after the intravenous administration of contrast. COMPARISON: Lumbar spine CT 04/20/2022. FINDINGS: For the purpose of the report the L5-S1 disc space will be located on axial image 21 of 30. S1 is demonstrated to be a transitional vertebra with partial lumbarization of the right S1 transvers e process. Mild anterior wedging at L1 consistent with an old compression deformity. Mild paravertebr al edema along the right anterior aspect the L1 vertebral body likely corresponding to the subacute n ondisplaced anterior osteophyte fracture seen on the prior lumbar spine CT. No additional fractures i dentified within the lumbar spine. There is mild levoscoliosis. Moderate to severe disc space at L2-L 3 and L5-S1 with endplate osteophytes. There is a hypoplastic S1-S2 disc space. There is mild disc sp zechariah narrowing at L1-L2, L3-L4, and L4-5. The conus terminates at the L1 level. Moderate facet degener ative changes within the mid to lower lumbar spine. No abnormal enhancement. Mild motion artifact. He terogeneous marrow signal which is likely age-related. No focal lesions to suggest metastatic disease . L1-L2: Broad-based posterior disc osteophyte complex resulting in mild central canal and mild bilater al neural foraminal narrowing. L2-L3: Broad-based posterior disc bulge asymmetric to the right resulting in mild central canal and m oderate right neural foraminal narrowing. No significant left neural foraminal narrowing. L3-L4: Broad-based posterior disc bulge with ligamentum and facet hypertrophy resulting in mild centr al canal narrowing. No significant neural foraminal narrowing. L4-L5: Broad-based posterior disc bulge asymmetric to the left with left greater than right facet hyp ertrophy. This results in mild central canal and severe left-sided neural foraminal narrowing. No sig nificant right-sided neural foraminal narrowing. There is also severe left subarticular stenosis due to the disc bulge and facet hypertrophy. L5-S1: Broad-based posterior disc bulge with facet hypertrophy most pronounced on the left resulting in minimal central canal narrowing. There is severe left subarticular stenosis due to the disc bulge and facet hypertrophy. This also severe left-sided neural foraminal narrowing. IMPRESSION: 1. Mild anterior wedging at L1 consistent with an old compression deformity. 2. Mild paravertebral edema along the right anterior aspect the L1 vertebral body likely correspondin g to the subacute nondisplaced anterior osteophyte fracture seen on the prior lumbar spine CT. 4. Degenerative changes as described above. 5. Mild levoscoliosis. 6. No suspicious osseous lesions identified within the lumbar spine. ACT 112: Negative or not required by law. Electronically signed by: Ever Delgado M.D. 04/21/2022 11:37 AM
[2022-04-21] MEDS: cefTRIAXone SODIUM 2,000 MG in DEXTROSE 5% 50 ML IV SCH (13:38)
[2022-04-21] MEDS: ACETAMINOPHEN 325 MG TAB PO SCH ×3 (13:39→21:44)
[2022-04-21 14:38] LABS: Creatinine Urine Random 85.5 mg/dl; Total Protein Urine Random < 4.0 mg/dl (0-11.9)
[2022-04-21] MEDS: WARFARIN SOD 4 MG TAB PO SCH (16:54)
[2022-04-22 08:18] LABS: INR 2.1 (0.9-1.1); Prothrombin Time 21.8 Seconds (9.0-12.0)
[2022-04-22 08:28] LABS: Calcium 8.8 mg/dl (8.5-10.1); Creatinine Clr Calc Pharmacy 56.4 ml/min; Est GFR (African American) 66.7 ml/min; Est GFR (Non-African American) 57.5 ml/min; Potassium 4.6 mmol/L (3.5-5.1)
[2022-04-22] MEDS ORDERED: KETOROLAC TROMETHAMINE 15 MG/ML VIAL IV ONE (08:37)
[2022-04-22] MEDS: ACETAMINOPHEN 325 MG TAB PO SCH ×4 (09:18→22:05)
[2022-04-22] MEDS: ANASTROZOLE 1 MG TAB PO SCH (09:19)
[2022-04-22] MEDS: ASPIRIN 81 MG CHEW PO SCH (09:19)
[2022-04-22] MEDS: METOPROLOL TARTRATE 25 MG TAB PO SCH ×2 (09:20→20:01)
[2022-04-22] MEDS: GABAPENTIN 300 MG CAP PO SCH ×3 (09:20→20:01)
[2022-04-22] MEDS: LIDOCAINE 5% 1 PATCH TD SCH (09:21)
--- NOTE | 2022-04-22 09:40 | Consultation ---
Date of Consultation April 22, 2022 Assessment & Plan (1) Back pain: Dr. Moise has reviewed lumbar MRI and CT scan. There are no acute fracture seen. No metastatic disease seen. No surgical intervention warranted. L1-L2 osteophyte lucency is subacute. She has both a corset and a rigid LSO brace for comfort. She can wear either 1 of these with activity/ambulation. Ambulate ad kalina. She is orthopedically stable for discharge when medically cleared. History of Present Illness Reason for Consultation: Subacute osteophyte fracture with back pain Attending Physician: Alanna Thomas DO History of Present Illness Is a pleasant 76-year-old female who sustained a fall on April 19. She states she was at [employer] and tripped over a box. She landed on her right side. A Few people at [employer] were able to help her up. The next day she came into the emergency room due to back pain. She has had chronic history of lower back pain. Current pain is along the right paravertebral musculature of the thoracolumbar region. No radicular complaints. She has a urinary tract infection currently being treated with Rocephin. She also has history of breast cancer. she typically ambulates independently. She lives alone. Allergies Allergy/AdvReac Type Severity Reaction Status Date / Time [id number] Reductase AdvReac Weakness Verified 04/20/22 21:01 Inhibitor Home Medications Medication Instructions Recorded Confirmed Type fenofibrate nanocrystallized 48 mg 48 mg PO QPM 10/08/18 04/20/22 History tablet furosemide 20 mg tablet 20 mg PO DAILY 10/08/18 04/20/22 History multivitamin (Multiple Vitamins 1 tab PO DAILY 10/08/18 04/20/22 History tablet) acetaminophen 500 mg tablet 1,000 mg PO Q6H PRN Pain 05/12/21 04/20/22 History gabapentin 300 mg capsule 300 mg PO TID 05/12/21 04/20/22 History metoprolol tartrate 25 mg tablet 25 mg PO BID 05/12/21 04/20/22 History potassium chloride 20 mEq 20 meq PO DAILY 05/12/21 04/20/22 History tablet,extended release warfarin 1 mg tablet 4 mg PO SuTuWeThSa@1600 05/12/21 04/20/22 History aspirin 81 mg chewable tablet 81 mg PO DAILY #30 tabs 05/15/21 04/20/22 Rx ([facility] Asp[facility]in) lisinopril 2.5 mg tablet 2.5 mg PO QAM #30 tabs 05/15/21 04/20/22 Rx ondansetron HCl 4 mg tablet 4 mg PO Q6H PRN nausea and 04/14/22 04/20/22 Rx vomiting #20 tabs oxycodone 5 mg tablet 5 mg PO Q6H PRN pain #15 tabs 04/14/22 04/20/22 Rx pantoprazole 40 mg tablet,delayed 40 mg PO DAILY 4 weeks #28 tabs 04/14/22 04/20/22 Rx release (Protonix) alendronate 70 mg tablet 70 mg PO Tu@0900 04/20/22 04/20/22 History anastrozole 1 mg tablet 1 mg PO QAM 04/20/22 04/20/22 History baclofen 10 mg tablet 10 mg PO HS 04/20/22 04/20/22 History prednisone 10 mg tablet 10 mg PO UD 04/20/22 04/20/22 History warfarin 1 mg tablet 1 mg PO MOFR@1600 04/20/22 04/20/22 History Patient History Medical History Aortic aneurysm Compression fracture H/O malignant neoplasm of breast HTN (hypertension) Pacemaker Surgical History H/O gastric bypass H/O hernia repair H/O: History of appendectomy Hx of cholecystectomy Mechanical heart valve present Family History Other Family history non-contributory Social History Smoking Status: Never smoker Second Hand Exposure: No; Do You Dip or Chew Tobacco: No; Tobacco Cessation Education Requested by Patient: No Hx Alcohol Use: No Hx Substance Use: No Preferred Language: Yakut Communication Ability: Effective Visual Impairment: No Limitations Hearing Ability: Normal Manager Disaster Recovery Required: No Beliefs That Will Affect Care: None marital status: Current Living Situation: Alone current occupational status: retired Other Information That Helps Us Care for You: No Feels Safe at Home: Yes Safety Concerns: Feels Safe At This Time Assistive Devices: None Review of Systems Review of Systems: All systems reviewed & are unremarkable except as noted in HPI & below Physical Exam Physical Exam: She is alert and oriented x3 Sitting in a chair in no acute distress with a rigid LSO brace on Upon inspection of the thoracolumbar spine there is no ecchymosis, lacerations. No palpable step-offs. Lidoderm patch noted along the right lower lumbar region. Modest tenderness to position of the right paravertebral musculature of the thoracolumbar region nontender on the left. Strength is intact bilateral lower extremities She moves/changes positions independently with modest discomfort Constitutional: cooperative Eyes: normal visual goodman by confrontation ENMT: external ear and nose normal, oropharynx normal Neck: normal visual inspection Respiratory: normal respiratory effort Cardiovascular: Extremities: normal capillary refill Gastrointestinal (Abdomen): Inspection/Auscultation: abdomen normal to inspection Musculoskeletal: Spine: + pain with thoraco-lumbar ROM and + paraspinal tenderness Extremities: extremities normal to inspection and strength 5/5 throughout Skin: no rashes, warm and dry Neurologic: normal touch/pain/proprioception and moves all extremities Psychiatric: A+Ox3, euthymic affect Eye Contact: good eye contact Speech: normal rate/rhythm/volume of speech Results & Data ([facility]) Vital Signs (Past 12 Hours) Vital Signs Temp Pulse Resp BP Pulse Ox O2 Del Method 04/22/22 07:51 36.6 C 60 18 127/62 99 Room Air Diagnostic Findings [place], [place] [phone] Magnetic Resonance Report Patient:ARMANI LAUREANO Admit Date:04/20/22 MR#:[id number] Address1:[address] Acct ID:[id number] Address2: Date:1945 [facility] Zip:[place] [address] Age:76 Location:3N Sex:F Room/Bed:[facility] Att Phy:Jeanmarie Colorado MD Diagnosis:BACK PAIN Alma Phy:Prashant Peterson MD Service Date:04/21/22 Fam Phy: Interpreting Phy:Ever Delgado MDAit Phy:Alanna Thomas DO Ordering Phy:Alanna Thomas DO cc: ~ LUMBAR SPINE MRI WITH AND WITHOUT CONTRAST HISTORY: progressive back pain, h/o breast ca TECHNIQUE: Multiplanar multisequence MRI of the lumbar spine was performed both before and after the intravenous administration of contrast. COMPARISON: Lumbar spine CT 04/20/2022. FINDINGS: For the purpose of the report the L5-S1 disc space will be located on axial image 21 of 30. S1 is demonstrated to be a transitional vertebra with partial lumbarization of the right S1 transverse process. Mild anterior wedging at L1 consistent with an old compression deformity. Mild paravertebral edema along the right anterior aspect the L1 vertebral body likely corresponding to the subacute nondisplaced anterior osteophyte fracture seen on the prior lumbar spine CT. No additional fractures identified within the lumbar spine. There is mild levoscoliosis. Moderate to severe disc space at L2-L3 and L5-S1 with endplate osteophytes. There is a hypoplastic S1-S2 disc space. There is mild disc space narrowing at L1-L2, L3-L4, and L4-5. The conus terminates at the L1 level. Moderate facet degenerative changes within the mid to lower lumbar spine. No abnormal enhancement. Mild motion artifact. Heterogeneous marrow signal which is likely age-related. No focal lesions to suggest metastatic disease. L1-L2: Broad-based posterior disc osteophyte complex resulting in mild central canal and mild bilateral neural foraminal narrowing. L2-L3: Broad-based posterior disc bulge asymmetric to the right resulting in mild central canal and moderate right neural foraminal narrowing. No significant left neural foraminal narrowing. L3-L4: Broad-based posterior disc bulge with ligamentum and facet hypertrophy resulting in mild central canal narrowing. No significant neural foraminal narrowing. L4-L5: Broad-based posterior disc bulge asymmetric to the left with left greater than right facet hypertrophy. This results in mild central canal and severe left-sided neural foraminal narrowing. No significant right-sided neural foraminal narrowing. There is also severe left subarticular stenosis due to the disc bulge and facet hypertrophy. L5-S1: Broad-based posterior disc bulge with facet hypertrophy most pronounced on the left resulting in minimal central canal narrowing. There is severe left subarticular stenosis due to the disc bulge and facet hypertrophy. This also severe left-sided neural foraminal narrowing. IMPRESSION: 1. Mild anterior wedging at L1 consistent with an old compression deformity. 2. Mild paravertebral edema along the right anterior aspect the L1 vertebral body likely corresponding to the subacute nondisplaced anterior osteophyte fr acture seen on the prior lumbar spine CT. 4. Degenerative changes as described above. 5. Mild levoscoliosis. 6. No suspicious osseous lesions identified within the lumbar spine. ACT 112: Negative or not required by law. Electronically signed by: Ever Delgado M.D. 04/21/2022 11:37 AM Dictated:04/21/22 1125 Transcribed: 04/21/22 1125 [place], [place] [phone] CT Scan Report Patient:ARMANI LAUREANO Admit Date:04/20/22 MR#:[id number] Address1:[address] Acct ID:[id number] Address2: Date:1945 [facility] Zip:[place] [address] Age:76 Location:ED Sex:F Room/Bed: Att Phy: Diagnosis:BACK PAIN FALL YESTERDAY Alma Phy:Prashant Peterson MD Service Date:04/20/22 [facility] Phy: Interpreting Phy:Javier Durham MDAdmit Phy: Ordering Phy:Lola Gee DO cc: ~ CT OF THE LUMBAR SPINE CLINICAL HISTORY: Lumbar spine pain following fall. COMPARISON STUDY: CT of the abdomen and pelvis April 14, 2022. TECHNIQUE: Helical axial images of the lumbar spine were obtained. Sagittal and coronal reconstructions were viewed. Automated exposure control was utilized for the study. A dose lowering technique was utilized adhering to the principles of ALARA. FINDINGS: For purposes of numbering on this exam, the L5-S1 disc space is assigned to axial image 207 of 355. There is a transitional vertebra at the lumbosacral junction which is designated as S1 for purposes of numbering on this exam. This is partially lumbarized. When utilizing this numbering scheme, there is a moderate compression deformity of the superior plate of L1. This is unchanged since abdominal CT of April 14, 2022 and likely chronic. No acute lumbar spine fracture is noted. There is a lucency through the right lateral osteophytes along the inferior endplate of L1 which is also unchanged since prior CT. No acute lumbar spine fracture is noted. Mild levoscoliosis of the lumbar spine is present. Central canal and neural foramen are suboptimally assessed by CT. Severe multilevel facet arthrosis is present. There is moderate multilevel degenerative disc disease. IMPRESSION: 1. No acute lumbar spine fracture or subluxation. 2. Lucency through right lateral osteophytes along the inferior endplate of L1. This was present on abdominal CT of April 14, 2022. This suggests a subacute to chronic nondisplaced fracture. 3. Old L1 compression deformity. 4. Severe multilevel facet arthrosis and moderate degenerative disc disease within the lumbar spine. 5. Mild levoscoliosis of the lumbar spine. 6. Transitional vertebra at the lumbosacral junction. Please see above numbering scheme of the lumbar spine. ACT 112: Negative or not required by law. Electronically signed by: Javier Durham M.D. 04/20/2022 11:53 AM Dictated:04/20/22 1144 Transcribed: 04/20/22 1144
--- NOTE | 2022-04-22 09:43 | Hospitalist Progress Note ---
Date of Service April 22, 2022 Assessment & Plan (1) Back pain: Plan: This is a 76-year-old female who has a significant past medical history of CAD status post CABG x1, history of mechanical aortic valve replacement with redo and now bioprosthetic valve in place, PAF on warfarin therapy, history of breast cancer, HTN, osteoporosis who presented to ER secondary to back pain. Initially seen in ER on 04/15 after reporting back pain for [address] At that time CT was performed with no evidence of kidney stone and she did have elevated lipase. She was diagnosed with acute pancreatitis. She was discharged with a PPI and pain medication. She was seen by PCP and placed on prednisone taper a few days prior to current admission due to continued back pain. Her repeat lipase at that time was normal. Lumbar Spine CT: IMPRESSION: 1. No acute lumbar spine fracture or subluxation. 2. Lucency through right lateral osteophytes along the inferior endplate of L1. This was present on abdominal CT of April 14, 2022. This suggests a subacute to chronic nondisplaced fracture. 3. Old L1 compression deformity. 4. Severe multilevel facet arthrosis and moderate degenerative disc disease within the lumbar spine. 5. Mild levoscoliosis of the lumbar spine. 6. Transitional vertebra at the lumbosacral junction. Please see above numbering scheme of the lumbar spine. Lumbar MRI: Mild anterior wedging at L1 consistent with an old compression deformity. 2. Mild paravertebral edema along the right anterior aspect the L1 vertebral body likely corresponding to the subacute nondisplaced anterior osteophyte fracture seen on the prior lumbar spine CT. 4. Degenerative changes as described above. 5. Mild levoscoliosis. 6. No suspicious osseous lesions identified within the lumbar spine. Lumbar Back Pain pt admitted to med/surg pain improved with valium and toradol in ED continue ICE QID, Lidocaine patch, will schedule APAP PT/OT consults placed and reviewed recommends home with HH or inpt rehab pt received LSO brace from orthotics, also abd binder which she states is easier to use in bed This morning pt having increased pain. Additional 15mg IV toradol x 1 now given ambulating with rolling walker She doesn't feel comfortable going back to apt if pain is not controlled, but would go home with HH if pain controlled ortho spine consult placed due to old fractures - pt states she, " broke her back, " after falling on ice ~ 30 years ago ortho spine - no surgical intervention, ambulate ad kalina, orthopedically stable likely MSK, remains afebrile, wbc wnl prednisone taper and PPI stopped on admission pt to remain hospitalized next 1-2 days to optimize pain control and d/c with HH Elevated BUN bun mildly elevated at 32 cr when from 0.8 to 1.12, now back to 0.97 she did receive toradol in ED yesterday will hold lasix , KCL and lisinopril to be precautionary also encourage fluids additional one time dose of toradol give 15mg monitor bmp consider resuming lasix, kcl and lisinopril tomorrow 04/23 (2) UTI (urinary tract infection): Plan: Symptoms present with +LE, +bacteria and +WBC in urine on admission Continue Rocephin, Day 3 Urine culture > 100k klebsiella will give Rocephin dose now and then start oral antibiotics tomorrow, 04/23 (3) Paroxysmal atrial fibrillation: Plan: rate and rhythm controlled with metoprolol continue warfarin, INR 2.1 (4) S/P CABG x 1: (5) S/P AVR (aortic valve replacement): Plan: 2003-mechanical aortic valve replacement, single vessel cardiac bypass, dual chamber AV pacemaker for CHB Mar 2020-presented to [facility] with left chest pain. Underwent a right and left heart cath revealing 80% prox to mid LAD stenosis and no obvious bypass graft visualized. Aortic root injection with possible dilated ascending aorta. Echo showed severe stenosis of the mechanical aortic valve with mild AI. Transferred to [facility] [place] redo AVR and CABG. 03/22/2020: at [facility] (Dr. Aldo Ruano) underwent a reoperative aortic valve replacement using a 23 mm Ortega Traore magna ease pericardial bioprosthesis and a CABG x 1 with a pedicled left internal mammary artery to the LAD. Over the next several days pacing wires were removed. She still had her permanent pacemaker in place which was interrogated and functioning appropriately. Coumadin was still indicated because of the atrial fibrillation. (6) HTN (hypertension): Plan: BP controlled today 127/62 hold lisinopril for now, consider resuming in a.m. if renal fxn remains stable (7) H/O malignant neoplasm of breast: Plan: Recently seen by Dr. Katz, [facility], in December 2021 and there is no evidence of recurrence or metastatic disease. s/p right breast partial mastectomy 09/05/21 for R breast stage I, T1N0M0, ER/MA positive tumor, now on anastrazole therapy daily. (8) DVT prophylaxis: Plan: warfain, INR 2.1 today, daily INR Full Code per my discussion with her on admission. Dispo - seen and evaled by PT/OT, pt not under adequate pain control yet, plan is home with home health, likely in next 1-2 days Pt was seen and examined in collaboration with Dr. Thomas, please see addendum Pt daughter Clementina is a PATIENT RELATIONS SPECIALIST at [facility] and use to work at [employer]. Admission and Anticipated Discharge Date Admission Date: April 20, 2022 Supervising Physician Co-Signing Physician Notes I have seen and examined the patient and have discussed the case with the provider above. I agree with the assessment and plan as stated. She is improved with respect to pain. She did receive one dose of toradol which helped her. Brace is helping her, also. She is tolerating food and is more mobile, moving independently around the bed today. Conservative management per ortho spine. Physical with persistent TTP in right lower back, otherwise unremarkable. She is oriented and in NAD. Cont supportive care of presumed MSK pain. DO Justin Thomas Patient was seen and examined in room 384-2. Follow-up right-sided low back pain. Patient ambulated from bed to chair with rolling walker and back brace in place. She was successful but slow. She states that she has not had anything yet this morning for pain. Pain currently 8/10. Pain located in right lower back. No radiation. She states she has not had anything at this morning for pain. She also states that she has not had any ice, except once yesterday. She denies fever, chills, sweats, lightheadedness, dizziness, chest pain, shortness of breath, nausea, vomiting, abdominal pain. She is passing flatus but no bowel movement. She is hesitant to go home by herself if pain is not controlled. She is agreeable to home health or rehab. Review of Systems Review of Systems: All systems reviewed & are unremarkable except as noted in HPI & below Physical Exam Physical Exam: Gen: WD/WN, NAD, A&O x3, sitting in bedside chair HEENT: Normocephalic, atraumatic, conjunctivae moist, sclerae anicteric, mucous membranes moist. Lung: Clear to Auscultation bilaterally, no wheezes/rales/rhonchi Heart: Regular rate, regular rhythm, 2/6 RACHEL noted RUSB, murmurs, rubs, or gallops Abdomen: Soft, NT, ND +BS x 4 Extremities: No edema, pain to palpation on right lower paraspinal musculature, + LSO brace in place Skin: Warm, no rash, negative turgor. Results & Data Results & Data ([facility]) Vital Signs (Past 12 Hours) Vital Signs Temp Pulse Resp BP Pulse Ox O2 Del Method 04/22/22 07:51 36.6 C 60 18 127/62 99 Room Air Laboratory Results [facility] 04/22/22 07:25 Sodium 139 Potassium 4.6 Chloride 105 Carbon Dioxide 30 BUN 32 H Creatinine 0.97 Glucose 86 Calcium 8.8 (1) Back pain Back pain laterality: right Back pain location: low back pain Chronicity: acute Sciatica presence: without sciatica Qualified Code(s): M54.50 - Low back pain, unspecified
[2022-04-22] MEDS: cefTRIAXone SODIUM 2,000 MG in DEXTROSE 5% 50 ML IV SCH (10:16)
[2022-04-22] MEDS: WARFARIN SOD 4 MG TAB PO SCH (17:08)
[2022-04-23] MEDS: diazePAM 2 MG TABLET PO PRN (03:52)
[2022-04-23 07:59] LABS: BUN Creatinine Ratio 34.1 (10-20); Creatinine Clr Calc Pharmacy 60.1 ml/min; Est GFR (Non-African American) 62.2 ml/min
[2022-04-23] MEDS: ACETAMINOPHEN 325 MG TAB PO SCH ×4 (08:22→21:27)
[2022-04-23] MEDS: ANASTROZOLE 1 MG TAB PO SCH (08:22)
[2022-04-23] MEDS: ASPIRIN 81 MG CHEW PO SCH (08:23)
[2022-04-23] MEDS: CEFDINIR 300 MG CAP PO SCH ×2 (08:23→21:24)
[2022-04-23] MEDS: LIDOCAINE 5% 1 PATCH TD SCH (08:24)
[2022-04-23] MEDS: GABAPENTIN 300 MG CAP PO SCH ×3 (08:24→21:25)
[2022-04-23] MEDS: METOPROLOL TARTRATE 25 MG TAB PO SCH ×2 (08:31→21:25)
--- NOTE | 2022-04-23 14:43 | Hospitalist Progress Note ---
Date of Service April 23, 2022 Assessment & Plan (1) Back pain: Plan: This is a 76-year-old female who has a significant past medical history of CAD status post CABG x1, history of mechanical aortic valve replacement with redo and now bioprosthetic valve in place, PAF on warfarin therapy, history of breast cancer, HTN, osteoporosis who presented to ER secondary to back pain. Initially seen in ER on 04/15 after reporting back pain for [address] weeks[address] At that time CT was performed with no evidence of kidney stone and she did have elevated lipase. She was diagnosed with acute pancreatitis. She was discharged with a PPI and pain medication. She was seen by PCP and placed on prednisone taper a few days prior to current admission due to continued back pain. Her repeat lipase at that time was normal. Lumbar Spine CT: IMPRESSION: 1. No acute lumbar spine fracture or subluxation. 2. Lucency through right lateral osteophytes along the inferior endplate of L1. This was present on abdominal CT of April 14, 2022. This suggests a subacute to chronic nondisplaced fracture. 3. Old L1 compression deformity. 4. Severe multilevel facet arthrosis and moderate degenerative disc disease within the lumbar spine. 5. Mild levoscoliosis of the lumbar spine. 6. Transitional vertebra at the lumbosacral junction. Please see above numbering scheme of the lumbar spine. Lumbar MRI: Mild anterior wedging at L1 consistent with an old compression deformity. 2. Mild paravertebral edema along the right anterior aspect the L1 vertebral body likely corresponding to the subacute nondisplaced anterior osteophyte fracture seen on the prior lumbar spine CT. 4. Degenerative changes as described above. 5. Mild levoscoliosis. 6. No suspicious osseous lesions identified within the lumbar spine. Lumbar back pain Pain seems to be musculoskeletal in nature, patient remains afebrile without leukocytosis Pain improved with Valium and Toradol received in ED Pain currently controlled with scheduled Tylenol and ice application Spine Ortho consulted -no surgical intervention indicated, LSO brace recommended and abdominal binder PT/OT Discharge home with home health tomorrow likely [facility], remains afebrile, wbc wnl Elevated BUN BUN 30->32->31 creat stable Lasix, Lisinopril, and KCl on hold -- will continue to hold Gentle IVF x 1L PO intake encouraged (2) UTI (urinary tract infection): Plan: Symptoms present with +LE, +bacteria and +WBC in urine on admission Urine culture > 100k klebsiella Received 3 days IV ceftriaxone, transitioned to cefdinir on 04/23 (3) Paroxysmal atrial fibrillation: Plan: Anticoagulated on Coumadin, INR 2.0 Rate controlled on metoprolol (4) S/P CABG x 1: (5) S/P AVR (aortic valve replacement): Plan: 2003-mechanical aortic valve replacement, single vessel cardiac bypass, dual chamber AV pacemaker for CHB Mar 2020-presented to [facility] with left chest pain. Underwent a right and left heart cath revealing 80% prox to mid LAD stenosis and no obvious bypass graft visualized. Aortic root injection with possible dilated ascending aorta. Echo showed severe stenosis of the mechanical aortic valve with mild AI. Transferred to [facility] for redo AVR and CABG. Continue ASA, beta-saige, fenofibrate (6) HTN (hypertension): Plan: BP controlled, holding lisinopril as above Continue metoprolol (7) H/O malignant neoplasm of breast: Plan: Recently seen by Dr. Katz, [facility], in December 2021 and there is no evidence of recurrence or metastatic disease. s/p right breast partial mastectomy 09/05/21 for R breast stage I, T1N0M0, ER/NH positive tumor, now on anastrazole therapy daily. (8) DVT prophylaxis: Plan: On Coumadin, therapeutic INR Dispo -likely discharge home with home health tomorrow Admission and Anticipated Discharge Date Admission Date: April 21, 2022 Supervising Physician Co-Signing Physician Notes I have seen and examined the patient and have discussed the case with the provider above. I agree with the assessment and plan as stated. She has min pain today and is doing well with her brace getting around. Reports feeling confident about moving around alone at home upon discharge tomorrow. denies other issues. My physical exam is similar to that above. Cont tylenol with baclofen at night and PRN NSAIDs with ice. William, DO Subjective Follow-up for intractable back pain, UTI. Patient seen and examined. Sitting up in the chair, no acute distress. Patient states that she ambulated to the bathroom however did not wear her brace, therefore she is experiencing some right-sided back pain. Currently has ice in place. Reports pain is controlled with ice and scheduled Tylenol. Denies chest pain and shortness of breath. No lightheadedness or dizziness. Reports a good appetite, no abdominal pain or nausea. Review of Systems Review of Systems: ROS per HPI, all other systems reviewed and negative Physical Exam Constitutional: WD/WN, vitals as above Respiratory: normal respiratory effort, lungs clear to auscultation Cardiovascular: Rate/Rhythm: regular rate and regular rhythm Heart Sounds: + murmur (Grade 3/6, systolic) Gastrointestinal (Abdomen): Percussion/Palpation: abdomen soft; abdomen nontender Musculoskeletal: Right lumbar paraspinal tenderness to palpation Skin: no rashes, warm and dry Neurologic: no focal motor deficits Psychiatric: A+Ox3, euthymic affect Results & Data Results & Data ([facility]) Vital Signs (Past 12 Hours) Vital Signs Temp Pulse Resp BP Pulse Ox O2 Del Method 04/23/22 07:12 36.6 C 65 18 139/84 99 Room Air Laboratory Results [facility] 04/23/22 06:50 Sodium 139 Potassium 5.0 Chloride 106 Carbon Dioxide 29 BUN 31 H Creatinine 0.91 Glucose 91 Calcium 9.0 (1) Back pain Back pain laterality: right Back pain location: low back pain Chronicity: acute Sciatica presence: without sciatica Qualified Code(s): M54.50 - Low back pain, unspecified
[2022-04-23] MEDS ORDERED: SODIUM CHLORIDE 0.9% 1000ML 1,000 ML IV SCH (15:00)
[2022-04-23] MEDS: WARFARIN SOD 4 MG TAB PO SCH (17:33)
[2022-04-24] MEDS: diazePAM 2 MG TABLET PO PRN (02:15)
[2022-04-24 07:17] LABS: Prothrombin Time 20.5 Seconds (9.0-12.0)
[2022-04-24 07:25] LABS: BUN Creatinine Ratio 27.3 (10-20); Calcium 8.9 mg/dl (8.5-10.1); Est GFR (African American) 88.2 ml/min; Est GFR (Non-African American) 76.1 ml/min; Potassium 4.5 mmol/L (3.5-5.1)
[2022-04-24] MEDS: CEFDINIR 300 MG CAP PO SCH (09:14)
[2022-04-24] MEDS: ASPIRIN 81 MG CHEW PO SCH (09:14)
[2022-04-24] MEDS: GABAPENTIN 300 MG CAP PO SCH (09:15)
[2022-04-24] MEDS: ANASTROZOLE 1 MG TAB PO SCH (09:15)
[2022-04-24] MEDS: LIDOCAINE 5% 1 PATCH TD SCH (09:20)
[2022-04-24] MEDS: METOPROLOL TARTRATE 25 MG TAB PO SCH (09:22)
[2022-04-24] MEDS: ACETAMINOPHEN 325 MG TAB PO SCH (10:28)
[2022-04-24] MEDS ORDERED: WARFARIN SOD 2 MG TAB PO SCH (16:00)
--- NOTE | 2022-04-24 16:05 | Discharge Summary ---
Date of Service April 24, 2022 Admission HPI Per Admitting Provider 76 yo F presents with persistent back/flank pain. She presented to the ER on 04/15 reporting this had been ongoing for 2 weeks. She has been taking OTC meds at home without relief (Tylenol) and has noticed a darkening to her urine. She denies any nas hematuria but did report some blood present when she wiped on the tissue. She has chronic back pain but this is different and worse in intensity. Pain is worse with lying flat and sitting up and standing. Doesn't radiate down her legs; there is no issue with numbness or weakness in the legs. She admits to frequent falls as home, moving heavy furniture and lifting/playing with her grandchildren all which may have been contributing to her symptoms. CT was performed at that time revealing no evidence of kidney stone and there was a lipasemia noted. She reports she was diagnosed with acute pancreatitis. She was discharged with oxycodone, protonix and zofran PRN. Her pain didn't improve much and she was then seen in the clinic by her PCP and was placed on a prednisone tape just a few days ago. Repeat lipase check at that time was within normal range and she denies ever having nausea, vomiting. Just today she developed urinary urgency and notices that her right posterior flank is painful with urination. She did report a fall at [employer] yesterday, stumbling backwards over a box that was on the floor. Since that time she hasn't been able to walk or stand. Pain after morphine is being rated a 7/10. She denies stool incontinence, weight loss, night sweats, and is eating well. No chest pain or shortness of breath is present. Ice has been helping her. Extensive review of outpatient records was performed and I spoke with her daughter by phone who is a nurse practitioner at [facility] and discussed the case with treatment options with her at length. She reports the pacemaker was changed and should now be MRI compatible, however, she isn't sure about the leads in the PM being MR compatible. Admission Exam Per Admitting Provider Constitutional: WD/WN, vitals as above Respiratory: normal respiratory effort, lungs clear to auscultation Cardiovascular: Rate/Rhythm: regular rate and regular rhythm Heart Sounds: + murmur (Grade 3/6, systolic) Gastrointestinal (Abdomen): Percussion/Palpation: abdomen soft; abdomen nontender Musculoskeletal: Right lumbar paraspinal tenderness to palpation Skin: no rashes, warm and dry Neurologic: no focal motor deficits Psychiatric: A+Ox3, euthymic affect Principal Diagnosis Lumbar Back Pain Discharge Exam Constitutional WD/WN, vitals as above Respiratory normal respiratory effort, lungs clear to auscultation Cardiovascular Rate/Rhythm: regular rate and regular rhythm Heart Sounds: + murmur (Grade 3/6, systolic) Vessels: normal peripheral pulses Extremities: no edema Gastrointestinal (Abdomen) Percussion/Palpation: abdomen soft; abdomen nontender Musculoskeletal Tenderness with palpation over right paraspinal muscles Skin no rashes, warm and dry Neurologic no focal motor deficits Psychiatric A+Ox3, euthymic affect Discharge Data Allergies Allergy/AdvReac Type Severity Reaction Status Date / Time [id number] Reductase AdvReac Weakness Verified 04/20/22 21:01 Inhibitor Consultations Spine Ortho Ordered Studies Laboratory Results WBC 4.27 K/ul (4.8-10.8) L 04/21/22 07:27 RBC 4.45 M/uL (3.93-5.22) 04/21/22 07:27 Hgb 12.1 g/dl (12.0-16.0) 04/21/22 07:27 Hct 38.0 % (34.1-44.9) 04/21/22 07:27 MCV 85.4 fL (80.0-100.0) 04/21/22 07:27 MCH 27.2 pg (25.0-34.0) 04/21/22 07:27 MCHC 31.8 g/dL (32.0-36.0) L 04/21/22 07:27 RDW Std Deviation 44.0 fL (36.4-46.3) 04/21/22 07:27 RDW Coeff of Derek 14.3 % (11.5-14.5) 04/21/22 07:27 Plt Count 262 K/uL (130-400) 04/21/22 07:27 MPV 10.5 fL (9.4-12.3) 04/21/22 07:27 Immature Gran % (Auto) 0.2 % 04/20/22 11:56 Neut % (Auto) 75.6 % 04/20/22 11:56 Lymph % (Auto) 16.1 % 04/20/22 11:56 Darke % (Auto) 7.9 % 04/20/22 11:56 Eos % (Auto) 0.1 % 04/20/22 11:56 Baso % (Auto) 0.1 % 04/20/22 11:56 Neut # (Auto) 6.28 K/uL (1.4-6.5) 04/20/22 11:56 Lymph # (Auto) 1.34 K/uL (1.2-3.4) 04/20/22 11:56 Darke # (Auto) 0.66 K/uL (0.24-0.82) 04/20/22 11:56 Eos # (Auto) 0.01 K/uL (0-0.50) 04/20/22 11:56 Baso # (Auto) 0.01 K/uL (0-0.2) 04/20/22 11:56 Immature Gran # (Auto) 0.02 K/uL (0.00-0.02) 04/20/22 11:56 PT 20.5 Seconds (9.0-12.0) H 04/24/22 06:28 INR 2.0 (0.9-1.1) H 04/24/22 06:28 Sodium 138 mmol/L (136-145) 04/24/22 06:28 Potassium 4.5 mmol/L (3.5-5.1) 04/24/22 06:28 Chloride 107 mmol/L (98-107) 04/24/22 06:28 Carbon Dioxide 27 mmol/L (21-32) 04/24/22 06:28 Anion Gap 4 (3-11) 04/24/22 06:28 BUN 21 mg/dl (6-23) 04/24/22 06:28 Creatinine 0.77 mg/dl (0.6-1.2) 04/24/22 06:28 Est Cr Clr Drug Dosing 71.0 ml/min 04/24/22 06:28 Est GFR ( Amer) 88.2 ml/min 04/24/22 06:28 Est GFR (Non-Af Amer) 76.1 ml/min 04/24/22 06:28 BUN/Creatinine Ratio 27.3 (10-20) H 04/24/22 06:28 Glucose 82 mg/dl (70-99(Fasting)) 04/24/22 06:28 Calcium 8.9 mg/dl (8.5-10.1) 04/24/22 06:28 Magnesium 2.1 mg/dl (1.7-2.4) 04/20/22 11:56 Total Bilirubin 0.6 mg/dl (0.2-1.0) 04/20/22 11:56 AST 34 U/L (13-39) 04/20/22 11:56 ALT 29 U/L (7-52) 04/20/22 11:56 Alkaline Phosphatase 32 U/L (34-104) L 04/20/22 11:56 Total Protein 6.8 gm/dl (6.0-8.3) 04/20/22 11:56 Albumin 3.9 gm/dl (3.4-5.0) 04/20/22 11:56 Globulin 2.9 gm/dl (2.5-4.0) 04/20/22 11:56 Albumin/Globulin Ratio 1.3 (0.9-2) 04/20/22 11:56 Lipase 28 U/L (11-82) 04/20/22 11:56 Urine Color Yellow 04/20/22 13:40 Urine Appearance Clear (Clear) 04/20/22 13:40 Urine pH 6.5 (4.5-7.5) 04/20/22 13:40 Ur Specific Yale 1.014 (1.000-1.030) 04/20/22 13:40 Urine Protein Negative (Negative) 04/20/22 13:40 Urine Glucose (UA) Negative (Negative) 04/20/22 13:40 Urine Ketones Negative (Negative) 04/20/22 13:40 Urine Blood Negative (Negative) 04/20/22 13:40 Urine Nitrite Negative (Negative) 04/20/22 13:40 Urine Bilirubin Negative (Negative) 04/20/22 13:40 Urine Urobilinogen Negative (Negative) 04/20/22 13:40 Ur Leukocyte Esterase 1+ (Negative) H 04/20/22 13:40 Urine WBC (Auto) 10-30 /hpf (0-5) H 04/20/22 13:40 Urine RBC (Auto) 0-4 /hpf (0-4) 04/20/22 13:40 U Hyaline Cast (Auto) 1-5 /lpf (0-5) 04/20/22 13:40 U Epithel Cells (Auto) 0-5 /lpf (0-5) 04/20/22 13:40 Urine Bacteria (Auto) 4+ (Negative) H 04/20/22 13:40 Ur Random Creatinine 85.5 mg/dl 04/21/22 13:54 U Random Total Protein < 4.0 mg/dl (0-11.9) 04/21/22 13:54 Protein/Creatinin Ratio TNP 04/21/22 13:54 SARS-CoV-2, RNA, NAAT NEGATIVE (NEGATIVE) 04/20/22 17:[address] 04/20/22 10:54 CT OF THE LUMBAR SPINE CLINICAL HISTORY: Lumbar spine pain following fall. COMPARISON STUDY: CT of the abdomen and pelvis April 14, 2022. TECHNIQUE: Helical axial images of the lumbar spine were obtained. Sagittal and coronal reconstructions were viewed. Automated exposure control was utilized for the study. A dose lowering technique was utilized adhering to the principles of ALARA. FINDINGS: For purposes of numbering on this exam, the L5-S1 disc space is assigned to axial image 207 of 355. There is a transitional vertebra at the lumbosacral junction which is designated as S1 for purposes of numbering on this exam. This is partially lumbarized. When utilizing this numbering scheme, there is a moderate compression deformity of the superior plate of L1. This is unchanged since abdominal CT of April 14, 2022 and likely chronic. No acute lumbar spine fracture is noted. There is a lucency through the right lateral osteophytes along the inferior endplate of L1 which is also unchanged since prior CT. No acute lumbar spine fracture is noted. Mild levoscoliosis of the lumbar spine is present. Central canal and neural foramen are suboptimally assessed by CT. Severe multilevel facet arthrosis is present. There is moderate multilevel degenerative disc disease. IMPRESSION: 1. No acute lumbar spine fracture or subluxation. 2. Lucency through right lateral osteophytes along the inferior endplate of L1. This was present on abdominal CT of April 14, 2022. This suggests a subacute to chronic nondisplaced fracture. 3. Old L1 compression deformity. 4. Severe multilevel facet arthrosis and moderate degenerative disc disease within the lumbar spine. 5. Mild levoscoliosis of the lumbar spine. 6. Transitional vertebra at the lumbosacral junction. Please see above numbering scheme of the lumbar spine. ACT 112: Negative or not required by law. Electronically signed by: Javier Durham M.D. 04/20/2022 11:53 AM Ribs w/Chest X-Ray 04/20/22 10:54 XR ribs RT min 2V w [id number] CLINICAL HISTORY: right posterior rib pain COMPARISON: Chest radiograph May 12, 2021. FINDINGS: There is no pneumothorax or pleural effusion. No acute right rib fractures are identified. There are median sternotomy wires, dual lead left subclavian pacemaker and a prosthetic aortic valve. No consolidation is identified. Mild reticulonodular interstitial thickening is similar to prior exam. IMPRESSION: No pneumothorax. No acute rib fractures. ACT 112: Negative or not required by law. Electronically signed by: Javier Durham M.D. 04/20/2022 11:32 AM Renal Ultrasound 04/20/22 14:40 RENAL ULTRASOUND CLINICAL HISTORY: right flank pain, UTI COMPARISON STUDY: CT of the abdomen and pelvis April 14, 2022. TECHNIQUE: Sonography of the kidneys and the urinary bladder was performed. FINDINGS: There is no hydronephrosis. The right kidney measures 10.1 x 4.7 x 5.2 cm and the left kidney measures 10.7 x 4.7 x 6 cm. 7 mm echogenic cortical lesion within the inferior pole of the right kidney corresponds to a fat- containing lesion by CT. This represents an angiomyolipoma. No urinary calculi are identified by sonography. There is mild renal cortical thinning. Both ureteral jets were identified. Bladder is suboptimally assessed given underdistention. IMPRESSION: No hydronephrosis. No renal abscess. ACT 112: Negative or not required by law. Electronically signed by: Javier Durham M.D. 04/20/2022 3:31 PM Lumbar Spine MRI 04/21/22 06:53 LUMBAR SPINE MRI WITH AND WITHOUT CONTRAST HISTORY: progressive back pain, h/o breast ca TECHNIQUE: Multiplanar multisequence MRI of the lumbar spine was performed both before and after the intravenous administration of contrast. COMPARISON: Lumbar spine CT 04/20/2022. FINDINGS: For the purpose of the report the L5-S1 disc space will be located on axial image 21 of 30. S1 is demonstrated to be a transitional vertebra with partial lumbarization of the right S1 transverse process. Mild anterior wedging at L1 consistent with an old compression deformity. Mild paravertebral edema along the right anterior aspect the L1 vertebral body likely corresponding to the subacute nondisplaced anterior osteophyte fracture seen on the prior lumbar spine CT. No additional fractures identified within the lumbar spine. There is mild levoscoliosis. Mod erate to severe disc space at L2-L3 and L5-S1 with endplate osteophytes. There is a hypoplastic S1-S2 disc space. There is mild disc space narrowing at L1-L2, L3-L4, and L4-5. The conus terminates at the L1 level. Moderate facet degenerative changes within the mid to lower lumbar spine. No abnormal enhancement. Mild motion artifact. Heterogeneous marrow signal which is likely age-related. No focal lesions to suggest metastatic disease. L1-L2: Broad-based posterior disc osteophyte complex resulting in mild central canal and mild bilateral neural foraminal narrowing. L2-L3: Broad-based posterior disc bulge asymmetric to the right resulting in mild central canal and moderate right neural foraminal narrowing. No significant left neural foraminal narrowing. L3-L4: Broad-based posterior disc bulge with ligamentum and facet hypertrophy resulting in mild central canal narrowing. No significant neural foraminal narrowing. L4-L5: Broad-based posterior disc bulge asymmetric to the left with left greater than right facet hypertrophy. This results in mild central canal and severe left-sided neural foraminal narrowing. No significant right-sided neural foraminal narrowing. There is also severe left subarticular stenosis due to the disc bulge and facet hypertrophy. L5-S1: Broad-based posterior disc bulge with facet hypertrophy most pronounced on the left resulting in minimal central canal narrowing. There is severe left subarticular stenosis due to the disc bulge and facet hypertrophy. This also severe left-sided neural foraminal narrowing. IMPRESSION: 1. Mild anterior wedging at L1 consistent with an old compression deformity. 2. Mild paravertebral edema along the right anterior aspect the L1 vertebral body likely corresponding to the subacute nondisplaced anterior osteophyte fracture seen on the prior lumbar spine CT. 4. Degenerative changes as described above. 5. Mild levoscoliosis. 6. No suspicious osseous lesions identified within the lumbar spine. ACT 112: Negative or not required by law. Electronically signed by: Ever Delgado M.D. 04/21/2022 11:37 AM Hospital Course (1) Back pain: This is a 76-year-old female who has a significant past medical history of CAD status post CABG x1, history of mechanical aortic valve replacement with redo and now bioprosthetic valve in place, PAF on warfarin therapy, history of breast cancer, HTN, osteoporosis who presented to ER secondary to back pain. Initially seen in ER on 04/15 after reporting back pain for [address] weeks[address] At that time CT was performed with no evidence of kidney stone and she did have elevated lipase. She was diagnosed with acute pancreatitis. She was discharged with a PPI and pain medication. She was seen by PCP and placed on prednisone taper a few days prior to current admission due to continued back pain. Her repeat lipase at that time was normal. Lumbar Spine CT: IMPRESSION: 1. No acute lumbar spine fracture or subluxation. 2. Lucency through right lateral osteophytes along the inferior endplate of L1. This was present on abdominal CT of April 14, 2022. This suggests a subacute to chronic nondisplaced fracture. 3. Old L1 compression deformity. 4. Severe multilevel facet arthrosis and moderate degenerative disc disease within the lumbar spine. 5. Mild levoscoliosis of the lumbar spine. 6. Transitional vertebra at the lumbosacral junction. Please see above numbering scheme of the lumbar spine. Lumbar MRI: Mild anterior wedging at L1 consistent with an old compression deformity. 2. Mild paravertebral edema along the right anterior aspect the L1 vertebral body likely corresponding to the subacute nondisplaced anterior osteophyte fracture seen on the prior lumbar spine CT. 4. Degenerative changes as described above. 5. Mild levoscoliosis. 6. No suspicious osseous lesions identified within the lumbar spine. Lumbar back pain Pain seems to be musculoskeletal in nature, patient remained afebrile without leukocytosis Spine Ortho consulted -no surgical intervention indicated, LSO brace recommended and abdominal binder Pain improved with Valium and Toradol received in ED Pain currently controlled with scheduled Tylenol, Lidoderm patch, and ice application. Patient was taking baclofen HS prior to admission, refill provided discharge. Elevated BUN BUN 30->32->31-> 21 on 04/24 creat stable Lasix, Lisinopril, and KCl were placed on hold, will continue to hold at discharge until follow-up with PCP and repeat labs Received 1 L IVF on 04/23 (2) UTI (urinary tract infection): Symptoms present with +LE, +bacteria and +WBC in urine on admission Urine culture > 100k klebsiella Received 3 days IV ceftriaxone, transitioned to cefdinir on 04/23 --> continued at discharge to complete a 7-day course (3) Paroxysmal atrial fibrillation: Anticoagulated on Coumadin, INR 2.0 Rate controlled on metoprolol (4) S/P CABG x 1: (5) S/P AVR (aortic valve replacement): 2003-mechanical aortic valve replacement, single vessel cardiac bypass, dual chamber AV pacemaker for CHB Mar 2020-presented to [facility] with left chest pain. Underwent a right and left heart cath revealing 80% prox to mid LAD stenosis and no obvious bypass graft visualized. Aortic root injection with possible dilated ascending aorta. Echo showed severe stenosis of the mechanical aortic valve with mild AI. Transferred to [facility] for redo AVR and CABG. Continue ASA, beta-saige, fenofibrate (6) HTN (hypertension): BP has remained controlled despite holding lisinopril and Lasix Continue metoprolol (7) H/O malignant neoplasm of breast: Recently seen by Dr. Katz, [facility], in December 2021 and there is no evidence of recurrence or metastatic disease. s/p right breast partial mastectomy 09/05/21 for R breast stage I, T1N0M0, ER/MN positive tumor, now on anastrazole therapy daily. Total Time Total Time Spent Total Time Spent (In Minutes): 35 Discharge Plan Discharge Items Patient Disposition: Home - Home Health Services Reason For Visit: BACK PAIN Discharge Diagnosis: Musculoskeletal back pain Activity: As commented below Activity Comment: As tolerated, use LSO brace when out of bed/walking Lifting: No more than 10 pounds Non-emergency contact: Primary Care Provider Call non-emergency contact if: you have any medication questions, your symptoms worsen, your pain is not controlled and you have a fever Follow-up/Referrals: Prashant Peterson MD [Primary Care Provider] - 04/29/22 11:20 am (Date & Time 04/29/2022 11:20 AM Provider Prashant Peterson MD Department Family Medicine [facility] ) Diet: Heart Healthy and Low Sodium (2gm) Addtl Attending Provider Instructions: You were admitted to the hospital for back pain. Imaging did not show any evidence of acute fracture. You were seen by spine orthopedics who recommends using LSO brace when out of bed. Continue to take Tylenol 650 mg 4 times per day scheduled for pain control. Lidoderm patches have also been sent to your pharmacy. Use one daily and remove at night. You may also continue to use ice application as needed for pain. Refill of baclofen 10mg has been sent to your pharmacy that you may use 1 tablet at nighttime as needed. Home health and home PT have been arranged for you with [facility], first visit will be on Wednesday. You were also found to have a UTI. An antibiotic, cefdinir, has been prescribed at discharge. Take cefdinir 300 mg twice daily for the next 3 days. Due to mildly abnormal renal functions, your lisinopril, furosemide, and potassium supplements have been held. Continue to hold these until your follow- up with Dr. Peterson. No changes have been made in your Coumadin dosing, the coag clinic will be reaching out to you regarding next INR check. It was a pleasure taking care of you! If you need to reach a member of the [facility] hospitalist team at [facility], please call [phone]. SUSIE Wiggins Pending Studies at Discharge: No Stand-Alone Forms: My [facility], Smoking Cessation Medications and DC Order Prescriptions: New cefdinir 300 mg Capsule 300 mg PO BID 3 Days Qty: 5 0RF acetaminophen 325 mg Tablet 650 mg PO QID Qty: 10 0RF lidocaine 5 % Adhesive Patch,Medicated 1 patch transdermal QAM Qty: 15 0RF Continued fenofibrate nanocrystallized 48 mg Tablet 48 mg PO QPM Rx Instructions: TAKE WITH EVENING MEAL multivitamin [Multiple Vitamins] Tablet 1 tab PO DAILY anastrozole 1 mg tablet 1 mg PO QAM alendronate 70 mg tablet 70 mg PO Tu@0900 warfarin 1 mg tablet 2 mg PO MOFR@1600 warfarin 1 mg tablet 4 mg PO SuTuWeThSa@1600 metoprolol tartrate 25 mg tablet 25 mg PO BID gabapentin 300 mg capsule 300 mg PO TID aspirin [Children's Aspirin] 81 mg Tablet,Chewable 81 mg PO DAILY Qty: 30 0RF pantoprazole [Protonix] 40 mg tablet,delayed release (DR/EC) 40 mg PO DAILY 28 Days Qty: 28 0RF ondansetron HCl 4 mg tablet 4 mg PO Q6H PRN (Reason: nausea and vomiting) Qty: 20 0RF Changed baclofen 10 mg tablet 10 mg PO HS PRN (Reason: muscle spasm) Qty: 10 0RF Discontinued furosemide 20 mg Tablet 20 mg PO DAILY prednisone 10 mg tablet 10 mg PO UD Rx Instructions: follow package instruction ordered 04/16/22 acetaminophen 500 mg Tablet 1,000 mg PO Q6H PRN (Reason: Pain) potassium chloride 20 mEq tablet extended release 20 meq PO DAILY lisinopril 2.5 mg Tablet 2.5 mg PO QAM Qty: 30 0RF oxycodone 5 mg tablet 5 mg PO Q6H PRN (Reason: pain) Qty: 15 0RF Discharge Orders: Discharge Order (Routine); Ordered 04/24/22 Ordered By: Isabel Strauss Admission Data Admit Date/Time: 04/21/22 15:54 Attending Provider: Alanna Thomas Admit Provider: Alanna Thomas Primary Care Provider: Prashant Peterson Other Providers: Alanna Thomas ; Kavya Sung ; Carter Moise ; Hang Lopez [facility] Other Interventions: Discharge Summary Assessment (RN) Last Done: 04/24/22 11:18 Supervising Physician Co-Signing Physician Notes 76-year-old female presented with acute back pain x2 weeks. She reported progressive difficulty with ambulation and worsening pain. She was admitted to medicine and ortho spine was consulted. Conservative measures were endorsed. Lumbar spine CT revealed a lucency through right lateral osteophytes suggesting a subacute to chronic nondisplaced fracture in the inferior endplate of L1. This was also present on abdominal CT taken April 14, 2022. She had an old L1 compression deformity and severe multilevel facet arthrosis and moderate degenerative disc disease within the lumbar spine. Following this a lumbar MRI was performed. L1 old compression deformity was seen. Mild paravertebral edema was seen along the right anterior aspect of the L1 vertebral body likely corresponding to his subacute nondisplaced anterior osteophyte fracture seen on the previous lumbar spine CT. There were no suspicious osseous lesions identified within the lumbar spine. Her back pain appeared to be musculoskeletal in nature and improved with conservative measures including Toradol, scheduled Tylenol, ice and Valium for muscle relaxation. With her elevated BUN and NSAID use, her Lasix lisinopril and potassium were placed on hold at discharge until she can be followed up with her primary care doctor. She was provided a brace and was demonstrating adequate use prior to discharge. All other chronic medical problems were stable. Close primary care follow-up w as recommended.
== END 2022-04-24 11:41 | disposition home health service (06) | DRG 552 ==
LOC: 3N 10:03 → ED 10:03 → SUATTDRO 16:50 → 3N 18:44